=== PATIENT | male | born 1940 | race Caucasian/White ===

== ENCOUNTER 2018-10-02 22:28 | Emergency (ER) | payer MEDICARE, OTHER, SELFPAY ==
[2018-10-02 22:20] VITALS: BP 202/70; PULSE 89; RESP 20; TEMP 36.6; O2SAT 98; BMI 47.9
--- NOTE | 2018-10-02 22:40 | DI.RAD.S_ITS ---
PROCEDURE: XR CHEST 1V INDICATIONS: dizzy, palpiations TECHNIQUE: One view of the chest was acquired. COMPARISON: [facility], , CHEST 1 VIEW, 05/12/2017, 4:33. FINDINGS: Surgical changes and devices: None. Lungs and pleura: Lungs are clear. No pleural effusions or pneumothorax. Cardiac silhouette and mediastinal contours are stable. Bones and chest wall: No suspicious bony lesions. Overlying soft tissues appear unremarkable. Bilateral shoulder degeneration. IMPRESSION: No acute consolidation. Scattered subsegmental atelectasis and/or scarring. Dictated by: Adam Armenta M.D. on 10/03/2018 at 7:51 Approved by: Adam Armenta M.D. on 10/03/2018 at 7:53
[2018-10-02 22:46] VITALS: BP 173/62; PULSE 74
--- NOTE | 2018-10-02 22:46 | ED_ITS ---
HPI - General Adult General Chief complaint: Hypertension Stated complaint: Dizzy, high blood pressure Time Seen by Provider: 10/02/18 22:35 Source: patient and EMS Mode of arrival: EMS Limitations: no limitations History of Present Illness HPI narrative: patient is a 77-year-old male who presents with hypertension. He has history of hypertension. He said he was watching TV with his and he decided to go to bed. He got up he felt little dizzy and lightheaded. Has no weakness numbness or tingling he has no chest pain or heart palpitations. His instructed him to go take his blood pressure he took a and number of times with a systolic above 200 every time. He was not feeling quite well so he shyam led EMS. Blood pressure did come down slightly for them however it does remain elevated here. He continues to deny other symptoms in fact he says that his lightheaded and dizziness has improved. His is no nausea or vomiting. Onset (ago): hour(s) (1) Related Data Home Medications Medication Instructions Recorded Confirmed amlodipine [Norvasc] 10 mg PO QDAY #0 04/11/12 10/02/18 cholecalciferol (vitamin D3) 3,000 iu PO QDAY #0 04/11/12 10/02/18 [Vitamin D3] omega [id number] oil [Fish Oil] 2,000 mg PO QDAY #0 04/11/12 10/02/18 aspirin 81 mg PO QDAY #0 03/05/13 10/02/18 sertraline [Zoloft] 50 mg PO QDAY #0 05/12/17 10/02/18 carvedilol 6.25 mg PO BID 10/02/18 10/02/18 glucosamine sulfate [Glucosamine] 1,500 mg PO DAILY 10/02/18 10/02/18 guaifenesin 400 mg PO DAILY 10/02/18 10/02/18 indomethacin 50 mg PO QID 10/02/18 10/02/18 losartan 100 mg PO DAILY 10/02/18 10/02/18 Previous Rx's Medication Instructions Recorded allopurinol 300 mg PO QDAY #90 06/05/12 Allergies Allergy/AdvReac Type Severity Reaction Status Date / Time RAKAN Inhibitors Allergy Unknown COUGH Unverified 12/04/17 12:59 nadolol Allergy Unknown BRADYCARDIA Unverified 12/04/17 12:59 Review of Systems Review of Systems ROS Unobtainable: All systems reviewed & are unremarkable except as noted in HPI and below Constitutional Denies chills, Denies fever(s), Denies lethargy and Denies weakness Cardiovascular Denies chest pain, Denies irregular heart rhythm, Reports lightheadedness, Denies dyspnea and Denies dyspnea on exertion Respiratory Denies cough, Denies dyspnea, Denies dyspnea on exertion and Denies wheezing Gastrointestinal Gastrointestinal: Denies abdominal pain, Denies change in bowel habits, Denies diarrhea, Denies nausea and Denies vomiting Genitourinary Denies hematuria, Denies flank pain, Denies urinary incontinence and Denies urinary urgency Integumentary/Breasts Denies pruritus, Denies erythema, Denies rash and Denies wounds Neurologic Denies weakness Allergic/Immunologic Denies wheezing FOR[facility]LY [facility] Medical History Hypertension (Acute) Social History Smoking Status: Former smoker Social History Smoking Status: Former smoker Exam Initial Vital Signs Initial Vital Signs: Vital Signs Temperature 97.8 F 10/02/18 22:20 Pulse Rate 89 10/02/18 22:20 Respiratory Rate 20 10/02/18 22:20 Blood Pressure 202/70 H 10/02/18 22:20 Pulse Oximetry 98 10/02/18 22:20 GENERAL: Alert older male in no acute distress alert oriented x3 cooperative HEENT: Head atraumatic,EOMI, pupils reactive, face symmetric neck is supple no JVD CARDIOVASCULAR: Regular rate and rhythm without murmurs, rubs or gallops. RESPIRATORY: Breath sounds equal bilaterally, no wheezes rales or rhonchi. ABDOMEN: Soft, nontender. Normoactive bowel sounds all 4 quadrants. No guarding or rebound. RECTAL: Hemoccult-positive, no hemorrhoids, nontender] : No CVA tenderness EXTREMITIES: Normal range of motion, no clubbing or edema. Neurovascularly intact NEUROLOGICAL: Alert and oriented x4.Normal gait and speech. 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 Scores NIH Stroke Scale Level of Conciousness: Alert, keenly responsive Ask month/age: Answers both questions correctly. Open/close eyes, close hand: Performs both tasks correctly Best gaze horizontal: Normal Visual [place]: No visual loss Facial palsy: Normal symetrical movement Left arm drift: No drift for full 10 sec Right arm drift: No drift for full 10 sec Left leg drift: No drift for full 10 sec Right leg drift: No drift for full 10 sec Limb ataxia: Absent Sensory on face/arms/legs: Normal, no sensory loss Best language: No aphasia, normal Dysarthria: Normal Extinction or inattention: No abnormality Total NIH Stroke scale score: 0 Course Orders Ordered: ED Orders 10/02/18 22:40 XR chest 1V Stat EKG-12 Lead Stat 10/02/18 23:10 Complete Blood Count AUTO DIFF Stat Comprehensive Metabolic Panel Stat Lipase Stat Troponin & CK Cardiac Panel Stat 10/03/18 01:50 Troponin I Stat Vital Signs - 8 hr 10/02/18 22:20 10/02/18 22:46 10/02/18 23:02 Temperature 97.8 F Pulse Rate 89 74 70 Respiratory Rate 20 Blood Pressure 202/70 H Blood Pressure [Right Arm] 173/62 H 170/52 H Pulse Oximetry 98 10/03/18 02:55 Temperature Pulse Rate 71 Respiratory Rate 19 Blood Pressure 160/71 H Blood Pressure [Right Arm] Pulse Oximetry 96 Medical Decision Making Lab Data Lab results reviewed: Yes I reviewed the patient's lab results. Result diagrams: 10/02/18 23:10 10/02/18 23:10 Lab Results 10/02/18 10/02/18 10/03/18 Range/Units 23:10 23:10 01:50 WBC 5.7 (4.5-11.0) X10^3/uL RBC 4.03 L (4.5-5.9) X10^6/uL Hgb 13.2 L (13.5-17.5) g/dL Hct 39.4 L (41-53) % MCV 97.7 (80-100) fL MCH 32.8 (26-34) PG MCHC 33.6 (30-36) % RDW 14.6 (11.6-14.8) % Plt Count 159 (150-400) X10^3/uL Neut % (Auto) 54.5 (50-75) % Lymph % (Auto) 30.6 (25-40) % [place] % (Auto) 9.5 (3-14) % Eos % (Auto) 4.9 H (2-4) % Baso % (Auto) 0.5 (0-2) % Neut # (Auto) 3100 (9007-2774) /uL Lymph # (Auto) 1700 (2061-6270) /uL [place] # (Auto) 500 (0-900) /uL Eos # (Auto) 300 (0-450) /uL Baso # (Auto) 0 (0-100) /uL Sodium 139 (137-145) mmol/L Potassium 3.8 (3.4-5.1) mmol/L Chloride 105 (98-107) mmol/L Carbon Dioxide 26 (22-32) mmol/L BUN 25 H (9-20) mg/dL Creatinine 1.10 (0.66-1.25) mg/dL Estimated GFR > 60.0 (>60) mL/min BUN/Creatinine Ratio 22.7 H (6-22) Glucose 228 H (80-110) mg/dL Calcium 10.5 H (8.4-10.2) mg/dL Total Bilirubin 0.3 (0.2-1.3) mg/dL AST 19 (17-59) IU/L ALT 26 (21-72) IU/L Alkaline Phosphatase 73 (38-126) U/L Total Creatine Kinase 111 (55-170) U/L CK-MB (CK-2) 3.15 H (<2.37) ng/mL CK-MB (CK-2) Rel Index 2.8 (1.5-5.0) % Troponin I 0.044 H 0.050 H (0.01-0.034) ng/mL Total Protein 6.8 (6.3-8.2) g/dL Albumin 4.1 (3.5-5.0) g/dL Globulin 2.7 (1.7-4.1) g/dL Albumin/Globulin Ratio 1.5 (1.0-2.8) Lipase 69 (23-300) U/L Imaging Data Chest x-ray: Attestation: I personally reviewed and interpreted this imaging study as follows: My impression: No acute cardiopulmonary process MDM Narrative Medical decision making narrative: Patient has been ambulatory multiple times to the restroom. His blood pressure has decreased without any intervention. His troponin is slightly elevated minimal change between 2nd troponin. He has absolutely no chest pain. he is feeling dizzy and lightheaded with an elevated blood pressure all symptoms have now resolved. He has been resting comfortably. His son is at bedside he feels ready and able to go home. I discussed all findings with the patient and son, Education has been performed regarding treatment plan, diagnosis, warning signs and symptoms and all concerns have been addressed. Verbally agree with and understood all of the above. Multiple etiologies for patient's symptoms considered including: Hypertension, Vertigo, benign paroxysmal positional vertigo, acute coronary syndrome, CVA, TIA Discharge Plan Departure Patient Disposition: Home Clinical Impression: Hypertension Discharge Date/Time: 10/03/18 02:55 Interventions: ED Discharge Assessment Last Done: 10/03/18 02:55 Instructions: DI for High Blood Pressure Activity Restrictions/Additional Instructions: *You have been diagnosed with hypertension *What to do: Please discuss medication adjustments with your primary care provider. You may need different dosages of her blood pressure medication. *Continue to take medications as directed *Follow up with your primary care provider in 2-3 days *Return to ER if you should have headache, chest pain, shortness of breath, heart palpitations, passing out or any new, worsening or concerning symptoms Prescriptions: No Action cholecalciferol (vitamin D3) [Vitamin D3] 2,000 UNIT capsule 3,000 iu PO QDAY Qty: 0 RF: 0 omega 2-sah-pix-fish oil [Fish Oil] 1,000 MG capsule 2,000 mg PO QDAY Qty: 0 RF: 0 amlodipine [Norvasc] 5 MG tablet 10 mg PO QDAY Qty: 0 RF: 0 allopurinol 300 MG tablet 300 mg PO QDAY Qty: 90 RF: 0 aspirin 81 MG tablet,delayed release (DR/EC) 81 mg PO QDAY Qty: 0 RF: 0 sertraline [Zoloft] 25 mg tablet 50 mg PO QDAY Qty: 0 RF: 0 carvedilol 6.25 mg Tablet 6.25 mg PO BID RF: 0 indomethacin 50 mg Capsule 50 mg PO QID RF: 0 glucosamine sulfate [Glucosamine] 500 mg Tablet 1,500 mg PO DAILY RF: 0 guaifenesin 200 mg Tablet 400 mg PO DAILY RF: 0 losartan 100 mg Tablet 100 mg PO DAILY RF: 0 Referrals: Jose Alberto Alexis MD [Physician] -
[2018-10-02 23:02] VITALS: BP 170/52; PULSE 70
--- NOTE | 2018-10-02 23:26 | PC.NURSE ---
Pt walked with steady gait,feeling better than she did when she arrived.
[2018-10-02 23:27] LABS: Add Manual Diff / Slide Review NO; Basophils Absolute Auto 0 /uL (0-100); Basophils Percent Auto 0.5 % (0-2); Eosinophils Absolute Auto 300 /uL (0-450); Eosinophils Percent Auto 4.9 % (2-4); Hematocrit 39.4 % (41-53); Hemoglobin 13.2 g/dL (13.5-17.5); Lymphocytes Absolute Auto 1700 /uL (1100-4500); Lymphocytes Percent Auto 30.6 % (25-40); Mean Corpuscular HGB Conc 33.6 % (30-36); Mean Corpuscular Hemoglobin 32.8 PG (26-34); Mean Corpuscular Volume 97.7 fL (80-100); Monocytes Absolute Auto 500 /uL (0-900); Monocytes Percent Auto 9.5 % (3-14); Neutrophils Absolute Auto 3100 /uL (1500-7000); Neutrophils Percent Auto 54.5 % (50-75); Platelet Count 159 X10^3/uL (150-400); Red Blood Cell Count 4.03 X10^6/uL (4.5-5.9); Red Cell Distribution Width 14.6 % (11.6-14.8); White Blood Cell Count 5.7 X10^3/uL (4.5-11.0)
[2018-10-02 23:40] LABS: Alanine Aminotransferase 26 IU/L (21-72); Albumin 4.1 g/dL (3.5-5.0); Albumin Globulin Ratio 1.5 (1.0-2.8); Alkaline Phosphatase 73 U/L (38-126); Aspartate Aminotransferase 19 IU/L (17-59); BUN Creatinine Ratio 22.7 (6-22); Bilirubin Total 0.3 mg/dL (0.2-1.3); Blood Urea Nitrogen 25 mg/dL (9-20); Calcium 10.5 mg/dL (8.4-10.2); Carbon Dioxide 26 mmol/L (22-32); Chloride 105 mmol/L (98-107); Creatine Kinase 111 U/L (55-170); Estimated Glomerular Filt Rate > 60.0 mL/min (>60); Globulin 2.7 g/dL (1.7-4.1); Glucose 228 mg/dL (80-110); Lipase 69 U/L (23-300); Potassium 3.8 mmol/L (3.4-5.1); Sodium 139 mmol/L (137-145); Total Protein 6.8 g/dL (6.3-8.2)
[2018-10-02 23:45] LABS: HEMOLYSIS < 15 (0-50)
[2018-10-02 23:53] LABS: Troponin I 0.044 ng/mL (0.01-0.034)
[2018-10-02 23:55] LABS: CKMB % Relative Index 2.8 % (1.5-5.0); Creatine Kinase MB 3.15 ng/mL (<2.37)
[2018-10-03 02:55] VITALS: BP 160/71; PULSE 71; RESP 19; O2SAT 96
== END 2018-10-03 02:55 | disposition home or self-care (01) ==
PROVIDERS: Emergency Provider Emergency Medicine; Family Provider Internal Medicine; PCP Internal Medicine
DX: I10 Essential (primary) hypertension (principal)
CPT/HCPCS: 36415; 36591; 71045; 80053; 82550; 82553; 83690; 84484; 85025; 93005; 99283; 99285

== ENCOUNTER → 2020-03-01 13:24 | Outpatient (CLI) | payer MEDICARE, OTHER, SELFPAY ==
--- NOTE | 2020-03-01 13:27 | DI.RAD.S_ITS ---
PROCEDURE: XR LUMBAR SPINE MIN 4V INDICATIONS: LBP TECHNIQUE: 4 views of the lumbar spine were acquired. COMPARISON: None. FINDINGS: Bones: 5 nonrib-bearing vertebrae are present. There is mildly levoscoliotic bony alignment. No vertebral body compression fractures. No suspicious bony lesions. Note is made of moderately severe degenerative disc disease which is most pronounced at L4-5 and L5-S1. Facet osteoarthritis becomes progressively more prominent from L2 inferiorly and is most pronounced at L5-S1. Soft tissues: Overlying bowel gas pattern is normal. No suspicious soft tissue calcifications. Oblique images: No pars defects. IMPRESSION: No acute disease. 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 Dictated by: Lazarus Jurado M.D. on 03/01/2020 at 14:35 Approved by: Lazarus Jurado M.D. on 03/01/2020 at 14:36
--- NOTE | 2020-03-01 13:27 | DI.RAD.S_ITS ---
PROCEDURE: XR HIP W PEL IF DONE RT 2V INDICATIONS: LBP TECHNIQUE: AP pelvis with lateral view(s) of the right hip(s). COMPARISON: None. FINDINGS: Bones: No fractures or dislocations, but there is a symmetric mild to moderate pattern of hip joint degenerative osteoarthritis as indicated by joint space narrowing. No prior trauma found.. Pelvic ring appears intact. No suspicious bony lesions. Soft tissues: The visualized bowel gas pattern is normal. No suspicious soft tissue calcifications. 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 Dictated by: Lazarus Jurado M.D. on 03/01/2020 at 14:37 Approved by: Lazarus Jurado M.D. on 03/01/2020 at 14:37
== END ==
PROVIDERS: Family Provider Internal Medicine; PCP Internal Medicine; Referring Provider Physical Medicine & Rehabilitation; Visit Provider Physical Medicine & Rehabilitation
DX: M25.551 Pain in right hip (principal); M16.0 Bilateral primary osteoarthritis of hip; M54.5 Low back pain; M51.36 Other intervertebral disc degeneration, lumbar region; M51.37 Other intervertebral disc degeneration, lumbosacral region; M47.816 Spondylosis without myelopathy or radiculopathy, lumbar region; M47.817 Spondylosis without myelopathy or radiculopathy, lumbosacral region
CPT/HCPCS: 72110; 73502

== ENCOUNTER → 2020-03-26 08:28 | Outpatient (CLI) | payer MEDICARE, OTHER, SELFPAY ==
--- NOTE | 2020-03-26 08:30 | DI.MRI.S_ITS ---
PROCEDURE: MR LUMBAR SPINE WO CON INDICATIONS: Chronic progressive low back pain TECHNIQUE: Noncontrast sagittal T1 spin echo and T2 fast echo, sagittal STIR, axial T1 and T2 fast spin echo through the lumbar spine. In cases with scoliosis, additional coronal T2 fast spin echo may be performed. COMPARISON: [facility], CR, XR LUMBAR SPINE MIN 4V, 03/01/2020, 13:23. FINDINGS: Image quality: Excellent. Alignment and Curvature: There is mild L4-L5 anterolisthesis. There is mild convex left curvature of the lumbar spine. Bone Marrow: Marrow is of normal overall signal. No acute vertebral body compression fractures. Spinal Cord: Conus medullaris terminates at the L1 level. Visualized cord demonstrates normal signal and size. Paraspinous Soft Tissues: No paravertebral masses. Partially visualized bilateral renal cysts. 1.4 centimeter exophytic lesion involving the posterior margin of the right kidney is noted which is isointense on all sequences may represent hemorrhagic cyst or solid mass. L1-L2: Loss of disc signal. Mild, diffuse disc bulge. Mild bilateral facet hypertrophy. Mild narrowing of the central canal. No neural foraminal narrowing. No neural compression. L2-L3: Loss of disc signal and height. Mild to moderate diffuse disc bulge. Mild bilateral facet hypertrophy. Moderate narrowing of the central canal. Mild to moderate bilateral neural foraminal narrowing. Fissures noted in the posterior annulus. L3-L4: Loss of disc signal and height. Moderate, diffuse disc bulge. Mild bilateral facet hypertrophy. Moderate narrowing of the central canal. Moderate right and mild left neural foraminal narrowing. No neural compression. Fissures noted in the posterior annulus. L4-L5: Loss of disc signal and height. Mild, diffuse disc bulge. Mild bilateral facet hypertrophy. Mild narrowing of the central canal. Moderate to severe right and mild left neural foraminal narrowing with slight compression of the exiting right L4 nerve root. Fissures noted in the posterior annulus. L5-S1: Loss of disc signal and height. Mild, diffuse disc bulge. Mild bilateral facet hypertrophy. Small right central disc protrusion. Disc protrusion abuts and displaces the traversing right S1 nerve root. No central stenosis. Moderate bilateral neural foraminal narrowing. Fissure noted in the posterior annulus. IMPRESSION: 1. Grade 1 L4-L5 degenerative spondylolisthesis. 2. Multilevel degenerative disease. 3. Multilevel facet arthropathy. 4. No significant central canal narrowing. 5. Moderate to severe right L4-L5 neural foraminal narrowing with slight compression of the exiting right L4 nerve root. 6. Small right central L5-S1 disc protrusion which abuts and slightly displaces the traversing right S1 nerve root. 7. L2-L3, L3-L4 and L4-L5 and L5-S1 disc annulus fissures. 8. 1.8 centimeter right renal exophytic lesion which could represent hemorrhagic cyst versus solid mass. Recommend renal ultrasound for further characterization. Dictated by: Keshia Castillo MD, PhD on 03/28/2020 at 11:18 Approved by: Keshia Castillo MD, PhD on 03/28/2020 at 11:25
== END ==
PROVIDERS: Family Provider Internal Medicine; PCP Internal Medicine; Referring Provider Physical Medicine & Rehabilitation; Visit Provider Physical Medicine & Rehabilitation
DX: M47.816 Spondylosis without myelopathy or radiculopathy, lumbar region (principal); M47.817 Spondylosis without myelopathy or radiculopathy, lumbosacral region; M51.36 Other intervertebral disc degeneration, lumbar region; M51.37 Other intervertebral disc degeneration, lumbosacral region; M51.27 Other intervertebral disc displacement, lumbosacral region; M48.061 Spinal stenosis, lumbar region without neurogenic claudication; M48.07 Spinal stenosis, lumbosacral region; M41.50 Other secondary scoliosis, site unspecified; G89.29 Other chronic pain; N28.9 Disorder of kidney and ureter, unspecified
CPT/HCPCS: 72148

== ENCOUNTER → 2020-04-07 12:30 | Outpatient (CLI) | payer MEDICARE, OTHER, SELFPAY ==
--- NOTE | 2020-04-07 12:33 | DI.US.S_ITS ---
PROCEDURE: US RENAL COMPLETE INDICATIONS: RIGHT KIDNEY MASS ON MRI TECHNIQUE: Real-time scanning was performed of the kidneys and bladder, with image documentation. COMPARISON: [facility], MR, MR LUMBAR SPINE WO CON, 03/26/2020, 8:35. FINDINGS: Kidneys: Kidneys are normal in size. Right kidney measures 12.9 cm long; left kidney measures 17.7 cm long. Right renal cortical thickness is 1.2 cm; left renal cortical thickness is 1.7 cm. Renal cortical echotexture is normal. No hydronephrosis or nephrolithiasis. No suspicious solid mass lesions. Multiple bilateral renal cysts are present. 1.7 x 1.6 x 1.6 cm complex cyst involves the mid inferior posterior aspect of the right kidney corresponding to the cyst seen on prior MRI. Bladder: Pre-void bladder volume is 83 mL. Post-void residual is 0 mL. Pre-void images demonstrate no intraluminal masses or stones. On pre-void images, bilateral ureteral jets are noted with color Doppler interrogation. (Of note, ureteral jets may not be detectable in up to 25% of cases due to insufficient differences in specific gravity between ureteral and bladder urine). Miscellaneous: No free pelvic fluid. IMPRESSION: Complex (Bosniak 2 F) Left renal cyst corresponding to the cyst seen on prior MRI. Recommend 3 month follow-up ultrasound for further assessment to document temporal stability. Dictated by: Pancho Pagan A Interpreted: Keshia Castillo MD on 04/07/2020 at 13:47 Approved by: Keshia Castillo MD, PhD on 04/07/2020 at 14:24
== END ==
PROVIDERS: Family Provider Internal Medicine; PCP Internal Medicine; Referring Provider Internal Medicine; Visit Provider Internal Medicine
DX: N28.89 Other specified disorders of kidney and ureter (principal); N28.1 Cyst of kidney, acquired
CPT/HCPCS: 76770

== ENCOUNTER → 2020-07-11 19:40 | Outpatient (ROUT) | payer MEDICARE, OTHER, SELFPAY ==
[2020-07-11 20:10] LABS: Aspartate Aminotransferase 20 IU/L (17-59); BUN Creatinine Ratio 18.6 (6-22); Blood Urea Nitrogen 24 mg/dL (9-20); Calcium 10.4 mg/dL (8.4-10.2); Carbon Dioxide 33 mmol/L (22-32); Chloride 103 mmol/L (98-107); Cholesterol 160 mg/dL (140-199); Estimated Glomerular Filt Rate 53.5 mL/min (>60); Glucose 237 mg/dL (80-110); HDL Cholesterol 59 mg/dL (40-60); HEMOLYSIS < 15 (0-50); LDL Cholesterol Calculated 34 mg/dL (<100); Potassium 4.4 mmol/L (3.4-5.1); Sodium 140 mmol/L (137-145); Triglycerides 334 mg/dL (35-150)
== END ==
PROVIDERS: Family Provider Internal Medicine; PCP Internal Medicine; Visit Provider Internal Medicine
DX: I10 Essential (primary) hypertension (principal); E78.2 Mixed hyperlipidemia
CPT/HCPCS: 80048; 80061; 84450

== ENCOUNTER → 2020-07-13 12:10 | Outpatient (CLI) | payer MEDICARE, OTHER, SELFPAY ==
--- NOTE | 2020-07-13 | DI.US.S_ITS ---
PROCEDURE: US RENAL COMPLETE INDICATIONS: COMPLEX CYST RIGHT KIDNEY TECHNIQUE: Real-time scanning was performed of the kidneys and bladder, with image documentation. COMPARISON: [facility], MR, MR LUMBAR SPINE WO CON, 03/26/2020, 8:35. [facility], US, US RENAL COMPLETE, 04/07/2020, 12:39. FINDINGS: Kidneys: Kidneys are normal in size. Right kidney measures 12.5 cm long; left kidney measures 2.2 cm long. Right renal cortical thickness is 16.5 cm; left renal cortical thickness is 2.1 cm. Right mid kidney posteriorly exophytic hypoechoic cyst measuring 2 x 1.9 x 1.4 cm, (previously measured at 1.7 x 1.6 x 1.6 cm). Multiple simple appearing cysts bilaterally. Largest cyst on the right measures 2.6 cm and on the left measures 10.3 cm. No hydronephrosis or nephrolithiasis. No suspicious solid mass lesions. Bladder: Decompressed. IMPRESSION: 1. Right mid kidney mildly complex cystic lesion measuring 2 cm. The cyst may be slightly increased in size compared to ultrasound 04/07/2020. -recommend further evaluated with renal MRI with IV contrast or renal protocol CT. 2. Multiple simple appearing renal cysts bilaterally. 3. No hydronephrosis. Dictated by: Wilmer Celestin M.D. on 07/13/2020 at 13:42 Approved by: Wilmer Celestin M.D. on 07/13/2020 at 14:03
== END ==
PROVIDERS: Family Provider Internal Medicine; PCP Internal Medicine; Referring Provider Internal Medicine; Visit Provider Internal Medicine
DX: N28.1 Cyst of kidney, acquired (principal)
CPT/HCPCS: 76770

== ENCOUNTER → 2020-07-22 11:39 | Outpatient (CLI) | payer MEDICARE, OTHER, SELFPAY ==
--- NOTE | 2020-07-22 11:42 | DI.MRI.S_ITS ---
PROCEDURE: MR ABDOMEN WO/W CON INDICATIONS: Other specified disorders of kidney and ureter TECHNIQUE: Coronal HASTE through abdomen and pelvis; axial 2D FLASH in- and [id number] (with and without fat saturation), and breath-hold T2 FSE from the hepatic dome to the bottom of the kidneys. Coronal HASTE MR urogram of kidneys and bladder. Dynamic coronal VIBE during IV gadolinium administration; postgadolinium axial VIBE or 2D FLASH with fat saturation from the hepatic dome through the kidneys. COMPARISON: [facility], , US RENAL COMPLETE, 07/13/2020, 12:25. [facility], , US RENAL COMPLETE, 04/07/2020, 12:39. [facility], , MR LUMBAR SPINE WO CON, 03/26/2020, 8:35. FINDINGS: Image quality: Excellent. Genitourinary system: No hydronephrosis or nephrolithiasis is suspected. Scattered renal cortical cysts are again seen, simple in character and measuring up to 7 cm anteriorly on the left, but present bilaterally. There is a small posterior directed renal cortical cyst at the lower 3rd margin of the right kidney, corresponding to the area of prior MR and ultrasound concern. This structure shows low signal character on axial T2 scanning, series 6, image 24, with elevated T2 signal at all other cyst. However, this demonstrates elevated precontrast and equivalent elevated post-contrast signal intensity within, consistent with a proteinaceous cyst. The overall size is approximately 1.3-1.4 cm in maximal dimension. Other solid organs: No abnormality found. Nodes and vessels: No abnormality seen, no enlarged lymph nodes found. Bowel and peritoneum: Normal. Lung bases: Normal. Bones and soft tissues: Normal. IMPRESSION: A small 1.3-1.4 cm exophytic right lower renal cortical cyst is present with proteinaceous internal content and no evidence of contrast enhancement. No follow-up recommended. Dictated by: Lazarus Jurado M.D. on 07/22/2020 at 13:07 Approved by: Lazarus Jurado M.D. on 07/22/2020 at 13:17
== END ==
PROVIDERS: Family Provider Internal Medicine; PCP Internal Medicine; Referring Provider Internal Medicine; Visit Provider Internal Medicine
DX: N28.89 Other specified disorders of kidney and ureter (principal); N28.1 Cyst of kidney, acquired
CPT/HCPCS: 74183

== ENCOUNTER → 2020-10-11 18:46 | Outpatient (ROUT) | payer MEDICARE, SELFPAY ==
[2020-10-11 19:05] LABS: BUN Creatinine Ratio 22.7 (6-22); Blood Urea Nitrogen 25 mg/dL (9-20); Calcium 10.8 mg/dL (8.4-10.2); Carbon Dioxide 28 mmol/L (22-32); Chloride 108 mmol/L (98-107); Estimated Glomerular Filt Rate > 60.0 mL/min (>60); Glucose 134 mg/dL (80-110); HEMOLYSIS 42 (0-50); Potassium 4.3 mmol/L (3.4-5.1); Sodium 140 mmol/L (137-145)
== END ==
PROVIDERS: Family Provider Internal Medicine; PCP Internal Medicine; Visit Provider Internal Medicine
DX: I10 Essential (primary) hypertension (principal)
CPT/HCPCS: 80048

== ENCOUNTER → 2021-02-03 15:27 | Outpatient (ROUT) | payer MEDICARE, SELFPAY ==
[2021-02-03 16:44] LABS: Prostate Specific Antigen Scrn 1.41 ng/mL (0.1-4.0)
== END ==
PROVIDERS: Family Provider Internal Medicine; PCP Internal Medicine; Visit Provider Internal Medicine
DX: R32 Unspecified urinary incontinence (principal)
CPT/HCPCS: G0103

== ENCOUNTER 2021-04-01 09:44 | Emergency (ER) | payer MEDICARE, SELFPAY ==
[2021-04-01] VITALS (15 sets, daily range): BP systolic 132–175; BP diastolic 62–100; PULSE 56–74; RESP 16–25; TEMP 37; O2SAT 95–98; BMI 34.7
--- NOTE | 2021-04-01 09:47 | ED_ITS ---
HPI - Chest Pain General Chief Complaint: Chest Pain Stated Complaint: chest pain Time Seen by Provider: 04/01/21 09:47 History of Present Illness HPI narrative: 80M former smoker with history of hypertension and hyperlipidemia presents with a few days of chest pain. He is currently symptom free but states that few days ago he developed retrosternal chest pressure and heaviness without obvious provocation or palliation. He states that he has had episodes that have lasted minutes to hours and have on occasion radiated into his right arm. He denies any associated symptoms such as dizziness, weakness or lightheadedness. He has no shortness of breath, nausea or vomiting. Additionally he states he has had some pain in his right lower back that on occasion wraps around his right side, also no worse with motion, food or drink. He denies any abdominal pain, nausea, vomiting or diarrhea. He denies any dysuria, frequency or urgency. Related Data Home Medications Medication Instructions Recorded Confirmed amlodipine 5 mg tablet (Norvasc) 10 mg PO QDAY #0 04/11/12 04/04/20 glucosamine sulfate 500 mg tablet 1,500 mg PO DAILY 10/02/18 04/04/20 (Glucosamine) indomethacin 50 mg capsule 50 mg PO QID 10/02/18 04/04/20 losartan 100 mg tablet 100 mg PO DAILY 10/02/18 04/04/20 Respironics DreamStation CPAP #1 ea 11/26/18 04/04/20 atorvastatin 10 mg tablet 10 mg PO DAILY 05/27/19 04/04/20 carvedilol 6.25 mg tablet 12.5 mg PO BID tab 05/27/19 04/04/20 cholecalciferol (vitamin D3) 50 4,000 unit PO BID #0 cap 05/27/19 04/04/20 mcg (2,000 unit) capsule (Vitamin D3) sertraline 100 mg tablet 100 mg PO DAILY 03/21/20 04/04/20 Previous Rx's Medication Instructions Recorded allopurinol 300 mg tablet 300 mg PO QDAY #90 06/05/12 Allergies Allergy/AdvReac Type Severity Reaction Status Date / Time RAKAN Inhibitors Allergy Unknown COUGH Verified 04/01/21 09:54 nadolol Allergy Unknown BRADYCARDIA Verified 04/01/21 09:54 Review of Systems Review of Systems Narrative: GENERAL: Denies chills, fatigue, malaise, fever, sweats. HEENT: Denies sinus pain, ear pain, sore throat, difficulty swallowing, dizziness. RESPIRATORY: Denies dyspnea, cough, wheezing, hemoptysis, sputum. CARDIOVASCULAR: See HPI GASTROINTESTINAL: Denies nausea, vomiting, abdominal pain, diarrhea, constipation, melena. : Denies dysuria, frequency, incontinence, hematuria, urinary retention. MUSCULOSKELETAL: denies weakness, joint pain, or bony pain SKIN: Denies rash, skin lesions, or other NEUROLOGIC: Denies weakness, headache, numbness, change in speech, confusion, seizures, incoordination. PSYCHIATRIC: No concerning psychosocial issues. 12 point review of systems is negative except for those stated above Patient History Medical History (Updated 04/01/21 @ 15:28 by Aman Hurtado DO) Acute low back pain Acute renal insufficiency Allergic rhinitis, cause unspecified (01/09/05) Depressive disorder, not elsewhere classified (07/26/03) Diabetes type 2, controlled Excessive daytime sleepiness Extrinsic asthma without status asthmaticus with acute exacerbation (01/22/03) Facet arthropathy, lumbar Glucose intolerance (03/27/04) Gout, unspecified Hyperparathyroidism, unspecified Hypertension Idiopathic peripheral autonomic neuropathy, unspecified (08/28/02) Mixed hyperlipidemia Obesity (BMI 30-39.9) Obstructive sleep apnea, adult Osteopenia (03/21/11) Proteinuria (11/06/05) Renal mass, right Right hip pain 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 Vitamin D deficiency, unspecified Surgical History History of parathyroid surgery Social History Smoking Status: Former smoker Smoking Status: Former smoker alcohol intake frequency: a few times a week Substance Use Type: does not use Exam Initial Vital Signs Initial Vital Signs: Vital Signs Temperature 98.6 F 04/01/21 09:48 Pulse Rate 74 04/01/21 09:48 Respiratory Rate 20 04/01/21 09:48 Blood Pressure 170/73 H 04/01/21 09:48 Pulse Oximetry 97 04/01/21 09:48 Course Orders Ordered: ED Orders 04/01/21 11:11 CT angio chest abdomen pelvis Stat 04/01/21 13:05 Troponin I Stat Vital Signs Vital signs: Vital Signs - 8 hr 04/01/21 13:00 04/01/21 13:01 04/01/21 13:31 Pulse Rate 62 Respiratory Rate 25 H Blood Pressure 136/62 168/72 H Pulse Oximetry 04/01/21 14:00 04/01/21 14:30 04/01/21 14:31 Pulse Rate 56 L 58 L Respiratory Rate 20 19 Blood Pressure 174/74 H 175/80 H Pulse Oximetry 95 95 04/01/21 15:00 04/01/21 15:01 Pulse Rate 56 L 57 L Respiratory Rate 23 22 Blood Pressure 158/71 H Pulse Oximetry 96 95 MDM - Chest Pain Lab Data Result diagrams: 04/01/21 10:40 04/01/21 10:40 Labs: Lab Results 04/01/21 04/01/21 04/01/21 Range/Units 10:40 10:40 10:40 WBC 10.7 (4.5-11.0) X10^3/uL RBC 4.12 L (4.5-5.9) X10^6/uL Hgb 13.0 L (13.5-17.5) g/dL Hct 39.7 L (41-53) % MCV 96.3 (80-100) fL MCH 31.6 (26-34) PG MCHC 32.8 (30-36) % RDW 15.4 H (11.6-14.8) % Plt Count 147 L (150-400) X10^3/uL Neut % (Auto) 77.2 H (50-75) % Lymph % (Auto) 12.9 L (25-40) % [place] % (Auto) 6.8 (3-14) % Eos % (Auto) 1.1 L (2-4) % Baso % (Auto) 2.0 (0-2) % Neut # (Auto) 8200 H (0923-2082) /uL Lymph # (Auto) 1400 (2530-3665) /uL [place] # (Auto) 700 (0-900) /uL Eos # (Auto) 100 (0-450) /uL Baso # (Auto) 200 H (0-100) /uL D-Dimer 297 H (<230) ng/mL Sodium 141 (137-145) mmol/L Potassium 4.3 (3.4-5.1) mmol/L Chloride 109 H (98-107) mmol/L Carbon Dioxide 25 (22-32) mmol/L BUN 21 H (9-20) mg/dL Creatinine 0.98 (0.66-1.25) mg/dL Estimated GFR > 60.0 (>60) mL/min BUN/Creatinine Ratio 21.4 (6-22) Glucose 151 H (80-110) mg/dL Calcium 10.6 H (8.4-10.2) mg/dL Total Bilirubin 0.9 (0.2-1.3) mg/dL AST 21 (17-59) IU/L ALT 17 (<50) IU/L Alkaline Phosphatase 81 (38-126) U/L Total Creatine Kinase 47 L (55-170) U/L CK-MB (CK-2) TNP CK-MB (CK-2) Rel Index TNP Troponin I 0.015 (0.01-0.034) ng/mL Total Protein 6.6 (6.3-8.2) g/dL Albumin 3.9 (3.5-5.0) g/dL Globulin 2.7 (1.7-4.1) g/dL Albumin/Globulin Ratio 1.4 (1.0-2.8) Lipase 36 (23-300) U/L 04/01/21 Range/Units 13:05 WBC (4.5-11.0) X10^3/uL RBC (4.5-5.9) X10^6/uL Hgb (13.5-17.5) g/dL Hct (41-53) % MCV (80-100) fL MCH (26-34) PG MCHC (30-36) % RDW (11.6-14.8) % Plt Count (150-400) X10^3/uL Neut % (Auto) (50-75) % Lymph % (Auto) (25-40) % [place] % (Auto) (3-14) % Eos % (Auto) (2-4) % Baso % (Auto) (0-2) % Neut # (Auto) (0932-5455) /uL Lymph # (Auto) (4649-8887) /uL [place] # (Auto) (0-900) /uL Eos # (Auto) (0-450) /uL Baso # (Auto) (0-100) /uL D-Dimer (<230) ng/mL Sodium (137-145) mmol/L Potassium (3.4-5.1) mmol/L Chloride (98-107) mmol/L Carbon Dioxide (22-32) mmol/L BUN (9-20) mg/dL Creatinine (0.66-1.25) mg/dL Estimated GFR (>60) mL/min BUN/Creatinine Ratio (6-22) Glucose (80-110) mg/dL Calcium (8.4-10.2) mg/dL Total Bilirubin (0.2-1.3) mg/dL AST (17-59) IU/L ALT (<50) IU/L Alkaline Phosphatase (38-126) U/L Total Creatine Kinase (55-170) U/L CK-MB (CK-2) CK-MB (CK-2) Rel Index Troponin I 0.017 (0.01-0.034) ng/mL Total Protein (6.3-8.2) g/dL Albumin (3.5-5.0) g/dL Globulin (1.7-4.1) g/dL Albumin/Globulin Ratio (1.0-2.8) Lipase (23-300) U/L Urine Dip Bedside Urine Glucose Negative Bedside Urine Bilirubin - Negative Bedside Urine Ketone - Negative Urine Specific [place] 1.025 Bedside Urine Occult Blood +/- Bedside Urine pH 6.0 Bedside Urine Protein ++ 100 Bedside Urine Urobilinogen - Negative Bedside Urine Nitrite - Negative Bedside Urine Leukocytes - Negative Esterase Imaging Data CT scan - chest: Radiologist's Impression: Tk Jacobo Fran 80 M 1940 [address] [id number] Scan ReportSigned Patient: Tk Jacobo FMR#: [id number]: 1940cct:[id number]/Sex: 80 / MDate of Service: 04/01/21Loc: EDAccession Number: [id number] Procedure: CT angio chest abdomen pelvis Ordering Provider: Aman Hurtado D.O. PROCEDURE: CT ANGIO CHEST ABDOMEN PELVIS INDICATIONS: chest, abdomen and flank pain TECHNIQUE: Precontrast 5 mm thick sections acquired from the lung apices to the iliac crests. After the administration of intravenous contrast, 2.5 mm thick sections again acquired from the lung apices to the iliac crests. Maximum intensity projection (MIP) oblique s agittal and coronal reformats were then acquired. For radiation dose reduction, the following was used: automated exposure control. COMPARISON: [facility], MR, MR ABDOMEN WO/W CON, 07/22/2020, 12:21. [facility], CR, XR CHEST 1V, 04/01/2021, 10:00. FINDINGS: Image quality: Excellent. AORTA: On precontrast imaging, no hyperdense mural hematomas can be seen. On postcontrast imaging, there is no ascending thoracic aortic aneurysm. 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 The descending thoracic aorta measures at the upper limits of normal. No abdominal aortic aneurysm is seen. No findings of dissection can be seen throughout. Atherosclerotic calcification is noted. CHEST: Lungs and pleura: No acute airspace opacities. No pleural effusions or pneumothorax. Central and peripheral airways are patent and normal in caliber. Mediastinum: Heart size is moderately enlarged. No pericardial effusion. No mediastinal or hilar adenopathy by size criteria. Central pulmonary arteries are normal in size. No pulmonary artery filling defects are seen to suggest pulmonary embolism. Esophagus is normal in caliber. There is a small hiatal hernia. Bones and chest wall: No axillary adenopathy by size criteria. Thyroid gland demonstrates no significant abnormality. No suspicious bony lesions. No vertebral body compression fractures. ABDOMEN: Vasculature: Celiac trunk and mesenteric arteries are patent. Renal arteries are also patent. Solid organs: Liver is normal in size and enhancement. Gallbladder wall is not thickened. Biliary system is non dilated. Pancreas enhances normally. Spleen is normal in size and enhancement. No adrenal nodules. Both kidneys are normal in size and enhancement, without hydronephrosis. A li aury hemorrhagic cyst is again seen along the posterior aspect of the right kidney. Simple appearing renal cysts are seen elsewhere, with the largest seen on the left measuring 10.5 cm. Peritoneum and bowel: No free fluid or air. Bowel loops are normal in caliber and wall thickness. A normal appendix is incidentally noted. Colonic diverticulosis is seen, without findings of active diverticulitis. Nodes and vessels: No retroperitoneal or mesenteric adenopathy by size criteria. Inferior vena cava is normal in morphology. Miscellaneous: There is a trace fat containing periumbilical hernia PELVIS: Genitourinary: Bladder wall thickness is normal. The prostate is enlarged, me asuring 6 cm transversely. Miscellaneous: No inguinal hernias or adenopathy. No ventral hernias. Bones: No suspicious bony lesions. No vertebral body compression fractures. Mild levoconvex scoliotic curvature is noted. Degenerative changes are seen throughout, which are worst involving the lower lumbar spine. Note is made of prominent fusion of the right sacroiliac joint. IMPRESSION: Negative for dissection. 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 Moderate cardiomegaly. Incidental note is made of: Small hiatal hernia Simple appearing bilateral renal cysts Stable hemorrhagic renal cyst on the right posteriorly Trace Fat containing periumbilical hernia Diverticulosis, without active diverticulitis Normal appendix Enlarged prostate Levoconvex scoliotic curvature Focal lower lumbar spine degenerative change Right sacroiliac joint fusion Dictated by: Krishna Diaz M.D. on 04/01/2021 at 10:55 Approved by: Krishna Diaz M.D. on 04/01/2021 at 11:02 [facility] Narrative Medical decision making narrative: 80-year-old male with various complaints. He has had chest pain for many days. There is no exertional component, he has multiple EKGs which are nonischemic and troponin is unremarkable. Other associated symptoms such as dizziness, nausea, vomiting, diaphoresis are not present. I have consulted with Cardiology and they a strong recommendation to workup patient as an outpatient. Other diagnoses such as pulmonary embolism and dissection are considered but thought unlikely given lack of findings on imaging. Regarding his flank pain dissection considered as well as kidney stone, kidney infection, bowel problem, gallbladder problem are all thought to be unlikely given lack of findings supported by labs or imaging. Patient is given multiple return precautions and questions answered to his apparent satisfaction. He and daughter understand and are in agreement with the plan Discharge Plan Departure Patient Disposition: Home Clinical Impression: Chest pain, rule out acute myocardial infarction, Acute flank pain Instructions: DI for Abdominal Pain-Adult, DI for Chest Pain Activity Restrictions/Additional Instructions: *You have been diagnosed with [chest pain and flank pain. Your physical exam, EKGs and labs as well as imaging are very reassuring. I have spoken with Cardiology and we sure the opinion that you can have your chest pain ruled out a s an outpatient] *What to do: *Please continue to take your regular medications as directed. [ ] New medication prescriptions sent to your pharmacy: [ ] [ ] New medication written as a paper prescription [ ] No new medications given *Please follow up with your primary care provider in 2-3 days, call for an appointment. Let them know you were seen in the Emergency Department and that we ask that you be seen in follow up. We will electronically transmit a record of today's note if your PCP is in our system *If you do not have a primary care provider please contact the [facility] Resource line at [phone]. They will ask some questions about your medical history and help get you set up with a doctor in the community. *Return to Emergency Department if you should have any new, worsening or concerning symptoms, such as [fever greater than 101 F, shaking chills, worsening pain, persistent vomiting or other bothersome symptoms] Prescriptions: No Action amlodipine [Norvasc] 5 MG tablet 10 mg PO QDAY Qty: 0 RF: 0 allopurinol 300 MG tablet 300 mg PO QDAY Qty: 90 RF: 0 cholecalciferol (vitamin D3) [Vitamin D3] 2,000 unit capsule 4,000 unit PO BID Qty: 0 RF: 0 indomethacin 50 mg Capsule 50 mg PO QID RF: 0 glucosamine sulfate [Glucosamine] 500 mg Tablet 1,500 mg PO DAILY RF: 0 losartan 100 mg Tablet 100 mg PO DAILY RF: 0 carvedilol 6.25 mg tablet 12.5 mg PO BID RF: 0 sertraline 100 mg tablet 100 mg PO DAILY RF: 0 (DME) Respironics DreamStation CPAP Qty: 1 RF: 0 atorvastatin 10 mg tablet 10 mg PO DAILY RF: 0 Referrals: Jose Alberto Alexis MD [Primary Care Provider] -
--- NOTE | 2021-04-01 09:54 | DI.RAD.S_ITS ---
PROCEDURE: XR CHEST 1V INDICATIONS: chest pain TECHNIQUE: One view of the chest was acquired. COMPARISON: None. Prior chest radiographs are not available from the archive for review at the time of this dictation. FINDINGS: Surgical changes and devices: None. Lungs and pleura: An incomplete inspiratory result is noted, causing a crowded appearance to the lung markings. No focal infiltrates are seen. No pneumothorax or significant pleural effusions are seen. Mediastinum: Mediastinal contours appear normal. Heart size is moderately enlarged. Bones and chest wall: No suspicious bony lesions. Age-appropriate bony degenerative changes are seen. Overlying soft tissues appear unremarkable. IMPRESSION: Moderate cardiomegaly. Dictated by: Krsihna Diaz M.D. on 04/01/2021 at 9:19 Approved by: Krishna Diaz M.D. on 04/01/2021 at 9:22
[2021-04-01 10:48] LABS: Add Manual Diff / Slide Review NO; Basophils Absolute Auto 200 /uL (0-100); Eosinophils Absolute Auto 100 /uL (0-450); Eosinophils Percent Auto 1.1 % (2-4); Hematocrit 39.7 % (41-53); Lymphocytes Absolute Auto 1400 /uL (1100-4500); Lymphocytes Percent Auto 12.9 % (25-40); Mean Corpuscular HGB Conc 32.8 % (30-36); Mean Corpuscular Hemoglobin 31.6 PG (26-34); Mean Corpuscular Volume 96.3 fL (80-100); Monocytes Absolute Auto 700 /uL (0-900); Monocytes Percent Auto 6.8 % (3-14); Neutrophils Absolute Auto 8200 /uL (1500-7000); Neutrophils Percent Auto 77.2 % (50-75); Platelet Count 147 X10^3/uL (150-400); Red Blood Cell Count 4.12 X10^6/uL (4.5-5.9); Red Cell Distribution Width 15.4 % (11.6-14.8); White Blood Cell Count 10.7 X10^3/uL (4.5-11.0)
[2021-04-01 11:00] LABS: D Dimer 297 ng/mL (<230)
[2021-04-01 11:06] LABS: Alanine Aminotransferase 17 IU/L (<50); Albumin 3.9 g/dL (3.5-5.0); Albumin Globulin Ratio 1.4 (1.0-2.8); Alkaline Phosphatase 81 U/L (38-126); Aspartate Aminotransferase 21 IU/L (17-59); BUN Creatinine Ratio 21.4 (6-22); Bilirubin Total 0.9 mg/dL (0.2-1.3); Blood Urea Nitrogen 21 mg/dL (9-20); Calcium 10.6 mg/dL (8.4-10.2); Carbon Dioxide 25 mmol/L (22-32); Chloride 109 mmol/L (98-107); Creatine Kinase 47 U/L (55-170); Estimated Glomerular Filt Rate > 60.0 mL/min (>60); Globulin 2.7 g/dL (1.7-4.1); Glucose 151 mg/dL (80-110); HEMOLYSIS < 15 (0-50); Lipase 36 U/L (23-300); Potassium 4.3 mmol/L (3.4-5.1); Sodium 141 mmol/L (137-145); Total Protein 6.6 g/dL (6.3-8.2)
--- NOTE | 2021-04-01 11:11 | DI.CT.S_ITS ---
PROCEDURE: CT ANGIO CHEST ABDOMEN PELVIS INDICATIONS: chest, abdomen and flank pain TECHNIQUE: Precontrast 5 mm thick sections acquired from the lung apices to the iliac crests. After the administration of intravenous contrast, 2.5 mm thick sections again acquired from the lung apices to the iliac crests. Maximum intensity projection (MIP) oblique sagittal and coronal reformats were then acquired. For radiation dose reduction, the following was used: automated exposure control. COMPARISON: [facility], MR, MR ABDOMEN WO/W CON, 07/22/2020, 12:21. [facility], CR, XR CHEST 1V, 04/01/2021, 10:00. FINDINGS: Image quality: Excellent. AORTA: On precontrast imaging, no hyperdense mural hematomas can be seen. On postcontrast imaging, there is no ascending thoracic aortic aneurysm. 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 The descending thoracic aorta measures at the upper limits of normal. No abdominal aortic aneurysm is seen. No findings of dissection can be seen throughout. Atherosclerotic calcification is noted. CHEST: Lungs and pleura: No acute airspace opacities. No pleural effusions or pneumothorax. Central and peripheral airways are patent and normal in caliber. Mediastinum: Heart size is moderately enlarged. No pericardial effusion. No mediastinal or hilar adenopathy by size criteria. Central pulmonary arteries are normal in size. No pulmonary artery filling defects are seen to suggest pulmonary embolism. Esophagus is normal in caliber. There is a small hiatal hernia. Bones and chest wall: No axillary adenopathy by size criteria. Thyroid gland demonstrates no significant abnormality. No suspicious bony lesions. No vertebral body compression fractures. ABDOMEN: Vasculature: Celiac trunk and mesenteric arteries are patent. Renal arteries are also patent. Solid organs: Liver is normal in size and enhancement. Gallbladder wall is not thickened. Biliary system is non dilated. Pancreas enhances normally. Spleen is normal in size and enhancement. No adrenal nodules. Both kidneys are normal in size and enhancement, without hydronephrosis. A likely hemorrhagic cyst is again seen along the posterior aspect of the right kidney. Simple appearing renal cysts are seen elsewhere, with the largest seen on the left measuring 10.5 cm. Peritoneum and bowel: No free fluid or air. Bowel loops are normal in caliber and wall thickness. A normal appendix is incidentally noted. Colonic diverticulosis is seen, without findings of active diverticulitis. Nodes and vessels: No retroperitoneal or mesenteric adenopathy by size criteria. Inferior vena cava is normal in morphology. Miscellaneous: There is a trace fat containing periumbilical hernia PELVIS: Genitourinary: Bladder wall thickness is normal. The prostate is enlarged, measuring 6 cm transversely. Miscellaneous: No inguinal hernias or adenopathy. No ventral hernias. Bones: No suspicious bony lesions. No vertebral body compression fractures. Mild levoconvex scoliotic curvature is noted. Degenerative changes are seen throughout, which are worst involving the lower lumbar spine. Note is made of prominent fusion of the right sacroiliac joint. IMPRESSION: Negative for dissection. 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 Moderate cardiomegaly. Incidental note is made of: Small hiatal hernia Simple appearing bilateral renal cysts Stable hemorrhagic renal cyst on the right posteriorly Trace Fat containing periumbilical hernia Diverticulosis, without active diverticulitis Normal appendix Enlarged prostate Levoconvex scoliotic curvature Focal lower lumbar spine degenerative change Right sacroiliac joint fusion Dictated by: Krishna Diaz M.D. on 04/01/2021 at 10:55 Approved by: Krishna Diaz M.D. on 04/01/2021 at 11:02
[2021-04-01 11:18] LABS: Troponin I 0.015 ng/mL (0.01-0.034)
[2021-04-01 13:35] LABS: Troponin I 0.017 ng/mL (0.01-0.034)
== END 2021-04-01 16:01 | disposition home or self-care (01) ==
PROVIDERS: Emergency Provider Emergency Medicine; Family Provider Internal Medicine; PCP Internal Medicine
DX: R07.9 Chest pain, unspecified (principal); R10.9 Unspecified abdominal pain
CPT/HCPCS: 36415; 71045; 71275; 74174; 80053; 81003; 82550; 83690; 84484; 85025; 85379; 93005; 99283; 99284; Q9967

== ENCOUNTER 2021-06-06 17:57 | Emergency (ER) | payer MEDICARE, SELFPAY ==
[2021-06-06] VITALS (18 sets, daily range): BP systolic 133–153; BP diastolic 58–67; PULSE 48–89; RESP 12–46; TEMP 36.1; O2SAT 92–100; BMI 31.8
--- NOTE | 2021-06-06 18:08 | ED_ITS ---
HPI - Fall General Chief Complaint: Weakness Stated Complaint: Multiple falls Time Seen by Provider: 06/06/21 18:03 History of Present Illness HPI Narrative: 80-year-old male with history of hyperlipidemia, idiopathic peripheral neuropathy, hypertension, presents by EMS for evaluation of generalized weakness and 2 falls today. He states that he was at [employer] and his legs were wobbly and just gave out underneath him, he was able to get himself to the car but then at home his arms gait out on him and he fell to the ground and crawled for 45 minutes before receiving help. He did strike his head but denies any loss of consciousness, nausea or vomiting. He denies any blurred vision or trouble with speech. He has had some diarrhea off and on for the past few weeks and had seen his primary care provider who put him on some unknown medication (later determined to be Immodium) He has had no fever chills, denies recent travel. Patient has been taking some Loperamide and Spironolactone has been prescribed since at least March. Related Data Home Medications Medication Instructions Recorded Confirmed amlodipine 5 mg tablet (Norvasc) 10 mg PO QDAY #0 04/11/12 05/20/21 glucosamine sulfate 500 mg tablet 1,500 mg PO DAILY 10/02/18 05/20/21 (Glucosamine) indomethacin 50 mg capsule 50 mg PO QID 10/02/18 05/20/21 losartan 100 mg tablet 100 mg PO DAILY 10/02/18 05/20/21 Respironics DreamStation CPAP #1 ea 11/26/18 05/20/21 atorvastatin 10 mg tablet 10 mg PO DAILY 05/27/19 05/20/21 sertraline 100 mg tablet 100 mg PO DAILY 03/21/20 05/20/21 carvedilol 25 mg tablet 25 mg PO BID 05/11/21 05/20/21 cholecalciferol (vitamin D3) 125 125 mcg PO DAILY 05/11/21 05/20/21 mcg (5,000 unit) capsule cyanocobalamin (vitamin B-12) 1,000 mcg PO DAILY 05/11/21 05/20/21 1,000 mcg capsule loperamide 2 mg tablet (Imodium 2 mg PO Q6H PRN 05/11/21 05/20/21 A-D) spironolactone 25 mg tablet 25 mg PO DAILY 05/11/21 05/20/21 tamsulosin 0.4 mg capsule (Flomax) 0.4 mg PO DAILY 05/11/21 05/20/21 terbinafine HCl 250 mg tablet 250 mg PO DAILY 05/11/21 05/20/21 vitamin B complex 1 tab PO DAILY 05/11/21 05/20/21 Previous Rx's Medication Instructions Recorded allopurinol 300 mg tablet 300 mg PO QDAY #90 06/05/12 fluconazole 150 mg tablet 150 mg PO QWEEK 28 Days #4 tab 05/20/21 Allergies Allergy/AdvReac Type Severity Reaction Status Date / Time RAKAN Inhibitors Allergy Unknown COUGH Verified 05/20/21 14:47 nadolol Allergy Unknown BRADYCARDIA Verified 05/20/21 14:47 Review of Systems Review of Systems Narrative: GENERAL: See HPI HEENT: Denies sinus pain, ear pain, sore throat, difficulty swallowing, dizziness. RESPIRATORY: Denies dyspnea, cough, wheezing, hemoptysis, sputum. CARDIOVASCULAR: Denies chest pain, palpitations, orthopnea, edema, GASTROINTESTINAL: Denies nausea, vomiting, abdominal pain, diarrhea, constipation, melena. : Denies dysuria, frequency, incontinence, hematuria, urinary retention. MUSCULOSKELETAL: denies weakness, joint pain, or bony pain SKIN: Denies rash, skin lesions, or other NEUROLOGIC: Denies weakness, headache, numbness, change in speech, confusion, seizures, incoordination. PSYCHIATRIC: No concerning psychosocial issues. 12 point review of systems is negative except for those stated above Patient History Medical History Acute low back pain Acute renal insufficiency Allergic rhinitis, cause unspecified (01/09/05) Depressive disorder, not elsewhere classified (07/26/03) Diabetes type 2, controlled Excessive daytime sleepiness Extrinsic asthma without status asthmaticus with acute exacerbation (01/22/03) Facet arthropathy, lumbar Glucose intolerance (03/27/04) Gout, unspecified Hyperparathyroidism, unspecified Hypertension Idiopathic peripheral autonomic neuropathy, unspecified (08/28/02) Intertrigo Mixed hyperlipidemia Obesity (BMI 30-39.9) Obstructive sleep apnea, adult Osteopenia (03/21/11) Proteinuria (11/06/05) Renal mass, right Right hip pain 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 Well-developed patient, in mild distress. GCS 15 HEAD: Superficial abrasion on forehead, no evidence of depressed skull fracture EYES: Pupils equal round and reactive. Extraocular motions intact. No scleral icterus. No injection or drainage. ENT: Dry mucous membranes Nose without bleeding, purulent drainage. Throat wi thout erythema, tonsillar hypertrophy or exudate. Airway patent. NECK: Trachea midline. Non tender CARDIOVASCULAR: Regular rate and rhythm without murmurs, gallops, or rubs. RESPIRATORY: Clear to auscultation. Breath sounds equal bilaterally. No wheezes, rales, or rhonchi. GASTROINTESTINAL: Abdomen soft, non-tender, nondistended. EXTREMITIES: No edema or joint tenderness. BACK: Nontender without deformity or crepitance. No flank tenderness. NEURO: AOx3. SKIN: No rash or erythema of visible areas Initial Vital Signs Initial Vital Signs: Vital Signs Temperature 97.0 F L 06/06/21 18:11 Pulse Rate 48 L 06/06/21 18:11 Respiratory Rate 12 06/06/21 18:11 Blood Pressure 153/64 H 06/06/21 18:11 Pulse Oximetry 98 06/06/21 18:11 Course Course Course Narrative: Soon after receipt initial round of labs I contacted the hospitalist and we sure the opinion that patient is likely in need of a higher level of care than we can provide here. Extensive interventions for hyperkalemia employed as noted above. After repeat of the labs there is very little change. At this point I contacted Nephrology at [facility] (Dr. Love and we discussed this case at length. The patient is in no respiratory distress and at this point has no significant EKG changes. We are both surprised by the lack of movement of the patient's potassium with therapy thus far. The patient does not meet any criteria for emergent dialysis, no facilities have beds currently. We discussed another round of therapies including insulin and dextrose as well as a bicarb drip. After above-stated and repeat therapies we will repeat labs and have another conversation. Orders Ordered: ED Orders 06/06/21 22:30 Basic Metabolic Panel Stat 06/06/21 23:05 Creatinine Urine Random Stat Sodium Urine Random Stat 06/07/21 02:02 EKG-12 Lead Stat 06/07/21 02:30 Basic Metabolic Panel Stat Sodium Chloride (Normal Saline 0.9%) 1,000 mls @ 150 mls/hr IV CONT JUDY Last Infusion: 06/06/21 20:57 Dose: 150 mls/hr Documented by: Admin: 06/06/21 18:50 Dose: 150 mls/hr Documented by: GREGORY Sodium Bicarbonate 50 meq/ (Sodium Chloride) 1,050 mls @ 125 mls/hr IV CONT JUDY Last Infusion: 06/06/21 23:58 Dose: 0 mls/hr Documented by: Admin: 06/06/21 22:03 Dose: 125 mls/hr Documented by: REMBERTO Sodium Bicarbonate 150 meq/ (Sodium Chloride) 1,150 mls @ 250 mls/hr IV CONT JUDY Last Infusion: 06/07/21 05:29 Dose: 0 mls/hr Documented by: Admin: 06/06/21 23:38 Dose: 250 mls/hr Documented by: PAM Discontinued Medications Albuterol (Albuterol 2.5 Mg/3 Ml Neb (Adult)) 20 mg INH NOW ONE Stop: 06/06/21 19:53 Last Admin: 06/06/21 20:33 Dose: 20 mg Documented by: COLTON Aspirin (Aspirin 81 Mg Chew Tab) 324 mg PO NOW ONE Stop: 06/06/21 18:12 Last Admin: 06/06/21 18:56 Dose: 324 mg Documented by: GREGORY Dextrose (Dextrose 50 % In Water 25 Gm/50 Ml Syringe) 25 gm IV NOW ONE Stop: 06/06/21 19:42 Last Admin: 06/06/21 20:02 Dose: 25 gm Documented by: GREGORY Dextrose (Dextrose 50 % In Water 25 Gm/50 Ml Syringe) 25 gm IV NOW ONE Stop: 06/06/21 23:15 Last Admin: 06/06/21 23:29 Dose: 25 gm Documented by: REMBERTO Furosemide (Furosemide 40 Mg/4 Ml Vial) 40 mg IV NOW ONE Stop: 06/06/21 19:04 Last Admin: 06/06/21 19:32 Dose: 40 mg Documented by: REMBERTO Calcium Gluconate 4.65 meq/ (Sodium Chloride) 60 mls @ 180 mls/hr IV NOW ONE Stop: 06/06/21 20:00 Last Infusion: 06/06/21 20:57 Dose: 0 mls/hr Documented by: Admin: 06/06/21 19:57 Dose: 180 mls/hr Documented by: GREGORY Insulin Human Regular (Insulin Regular 100 Unit/Ml 3 Ml Vial) 5 unit IV NOW ONE Stop: 06/06/21 19:42 Last Admin: 06/06/21 19:55 Dose: 5 unit Documented by: GREGORY Cosigned by: BELA Insulin Human Regular (Insulin Regular 100 Unit/Ml 3 Ml Vial) 10 unit IV NOW ONE Stop: 06/06/21 23:15 Last Admin: 06/06/21 23:29 Dose: 10 unit Documented by: REMBERTO Josephigned by: PAM Lidocaine HCl (Lidocaine Jelly 2% 5 Ml) 1 applic TOP NOW ONE Stop: 06/06/21 23:19 Last Admin: 06/06/21 23:59 Dose: Not Given Documented by: REMBERTO Lidocaine HCl (Lidocaine 2% (Glydo) 6 Ml Gel) 6 ml TOP NOW ONE Stop: 06/06/21 23:25 Last Admin: 06/07/21 00:01 Dose: 6 ml Documented by: REMBERTO Vital Signs Vital signs: Vital Signs - 8 hr 06/06/21 22:00 06/06/21 22:30 06/06/21 23:00 Pulse Rate 52 L 51 L 60 Respiratory Rate 20 27 H 46 H Blood Pressure Pulse Oximetry 97 95 92 06/06/21 23:02 06/06/21 23:04 06/06/21 23:05 Pulse Rate 59 L 53 L Respiratory Rate 29 H 22 Blood Pressure 143/61 H 145/65 H 145/65 H Pulse Oximetry 95 97 06/06/21 23:30 06/06/21 23:31 06/07/21 00:00 Pulse Rate 52 L 52 L 55 L Respiratory Rate 24 21 27 H Blood Pressure 136/62 Pulse Oximetry 95 95 95 06/07/21 00:01 06/07/21 00:30 06/07/21 00:31 Pulse Rate 55 L 55 L 56 L Respiratory Rate 22 26 H 27 H Blood Pressure 136/60 137/70 Pulse Oximetry 95 94 94 06/07/21 01:00 06/07/21 01:30 06/07/21 01:54 Pulse Rate 56 L 58 L 59 L Respiratory Rate 23 23 17 Blood Pressure 138/63 143/63 H 134/60 Pulse Oximetry 95 95 96 06/07/21 02:00 06/07/21 02:30 06/07/21 02:31 Pulse Rate 60 60 60 Respiratory Rate 23 26 H 28 H Blood Pressure 144/60 H 137/60 Pulse Oximetry 95 95 95 06/07/21 03:00 06/07/21 03:01 06/07/21 03:30 Pulse Rate 60 60 63 Respiratory Rate 25 H 22 22 Blood Pressure 131/60 Pulse Oximetry 95 95 97 06/07/21 03:31 06/07/21 04:00 06/07/21 04:01 Pulse Rate 64 63 64 Respiratory Rate 24 26 H 27 H Blood Pressure 146/64 H 143/62 H Pulse Oximetry 97 96 97 06/07/21 04:30 06/07/21 05:00 06/07/21 05:01 Pulse Rate 65 63 65 Respiratory Rate 20 22 23 Blood Pressure 138/63 144/64 H Pulse Oximetry 96 96 96 - Fall Lab Data Result diagrams: 06/06/21 18:25 06/07/21 02:30 Labs: Lab Results 06/06/21 06/06/21 06/06/21 Range/Units 18:25 19:11 19:12 WBC 9.5 (4.5-11.0) X10^3/uL RBC 3.79 L (4.5-5.9) X10^6/uL Hgb 12.2 L (13.5-17.5) g/dL Hct 37.1 L (41-53) % MCV 97.8 (80-100) fL MCH 32.0 (26-34) PG MCHC 32.7 (30-36) % RDW 15.8 H (11.6-14.8) % Plt Count 156 (150-400) X10^3/uL Neut % (Auto) 77.4 H (50-75) % Lymph % (Auto) 15.0 L (25-40) % Dickenson % (Auto) 5.0 (3-14) % Eos % (Auto) 2.3 (2-4) % Baso % (Auto) 0.3 (0-2) % Neut # (Auto) 7400 H (4343-8385) /uL Lymph # (Auto) 1400 (0340-8153) /uL Dickenson # (Auto) 500 (0-900) /uL Eos # (Auto) 200 (0-450) /uL Baso # (Auto) 0 (0-100) /uL VBG pH (7.33-7.43) VBG pCO2 (45-50) mmHg VBG pO2 (35-45) mmHg VBG HCO3 (23-28) mmol/L VBG Total CO2 (24-29) mmol/L VBG O2 Saturation (70-75) % VBG Base Excess (0-4) mmol/L Sodium 140 (137-145) mmol/L Potassium 8.8 H* (3.4-5.1) mmol/L Chloride 119 H (98-107) mmol/L Carbon Dioxide 13 L (22-32) mmol/L BUN 55 H (9-20) mg/dL Creatinine 2.00 H (0.66-1.25) mg/dL Estimated GFR 32.1 L (>60) mL/min BUN/Creatinine Ratio 27.5 H (6-22) Glucose 120 H (80-110) mg/dL Calcium 12.1 H (8.4-10.2) mg/dL Total Bilirubin 0.4 (0.2-1.3) mg/dL AST 19 (17-59) IU/L ALT 18 (<50) IU/L Alkaline Phosphatase 84 (38-126) U/L Total Creatine Kinase 93 (55-170) U/L CK-MB (CK-2) TNP CK-MB (CK-2) Rel Index TNP Troponin I 0.016 (0.01-0.034) ng/mL NT-Pro-B Natriuret Pep 430 (<450) pg/mL Total Protein 7.3 (6.3-8.2) g/dL Albumin 4.6 (3.5-5.0) g/dL Globulin 2.7 (1.7-4.1) g/dL Albumin/Globulin Ratio 1.7 (1.0-2.8) Lipase 125 (23-300) U/L Ur Random Sodium (30-90) mmol/L Urine Creatinine mg/dL SARS-CoV-2 (PCR) (Negative) 06/06/21 06/06/21 06/06/21 Range/Units 19:23 20:14 22:30 WBC (4.5-11.0) X10^3/uL RBC (4.5-5.9) X10^6/uL Hgb (13.5-17.5) g/dL Hct (41-53) % MCV (80-100) fL MCH (26-34) PG MCHC (30-36) % RDW (11.6-14.8) % Plt Count (150-400) X10^3/uL Neut % (Auto) (50-75) % Lymph % (Auto) (25-40) % Dickenson % (Auto) (3-14) % Eos % (Auto) (2-4) % Baso % (Auto) (0-2) % Neut # (Auto) (7041-1962) /uL Lymph # (Auto) (6261-0642) /uL Dickenson # (Auto) (0-900) /uL Eos # (Auto) (0-450) /uL Baso # (Auto) (0-100) /uL VBG pH 7.09 L* (7.33-7.43) VBG pCO2 48.6 (45-50) mmHg VBG pO2 33 L (35-45) mmHg VBG HCO3 15 L (23-28) mmol/L VBG Total CO2 16 L (24-29) mmol/L VBG O2 Saturation 43 L (70-75) % VBG Base Excess -15.0 L (0-4) mmol/L Sodium 140 (137-145) mmol/L Potassium 8.7 H* (3.4-5.1) mmol/L Chloride 120 H (98-107) mmol/L Carbon Dioxide 13 L (22-32) mmol/L BUN 58 H (9-20) mg/dL Creatinine 2.03 H (0.66-1.25) mg/dL Estimated GFR 31.6 L (>60) mL/min BUN/Creatinine Ratio 28.6 H (6-22) Glucose 105 (80-110) mg/dL Calcium 12.1 H (8.4-10.2) mg/dL Total Bilirubin (0.2-1.3) mg/dL AST (17-59) IU/L ALT (<50) IU/L Alkaline Phosphatase (38-126) U/L Total Creatine Kinase (55-170) U/L CK-MB (CK-2) CK-MB (CK-2) Rel Index Troponin I (0.01-0.034) ng/mL NT-Pro-B Natriuret Pep (<450) pg/mL Total Protein (6.3-8.2) g/dL Albumin (3.5-5.0) g/dL Globulin (1.7-4.1) g/dL Albumin/Globulin Ratio (1.0-2.8) Lipase (23-300) U/L Ur Random Sodium (30-90) mmol/L Urine Creatinine mg/dL SARS-CoV-2 (PCR) Negative (Negative) 06/06/21 06/07/21 Range/Units 23:05 02:30 WBC (4.5-11.0) X10^3/uL RBC (4.5-5.9) X10^6/uL Hgb (13.5-17.5) g/dL Hct (41-53) % MCV (80-100) fL MCH (26-34) PG MCHC (30-36) % RDW (11.6-14.8) % Plt Count (150-400) X10^3/uL Neut % (Auto) (50-75) % Lymph % (Auto) (25-40) % Dickenson % (Auto) (3-14) % Eos % (Auto) (2-4) % Baso % (Auto) (0-2) % Neut # (Auto) (6145-0510) /uL Lymph # (Auto) (8733-8912) /uL Dickenson # (Auto) (0-900) /uL Eos # (Auto) (0-450) /uL Baso # (Auto) (0-100) /uL VBG pH (7.33-7.43) VBG pCO2 (45-50) mmHg VBG pO2 (35-45) mmHg VBG HCO3 (23-28) mmol/L VBG Total CO2 (24-29) mmol/L VBG O2 Saturation (70-75) % VBG Base Excess (0-4) mmol/L Sodium 141 (137-145) mmol/L Potassium 7.8 H* (3.4-5.1) mmol/L Chloride 119 H (98-107) mmol/L Carbon Dioxide 16 L (22-32) mmol/L BUN 56 H (9-20) mg/dL Creatinine 1.93 H (0.66-1.25) mg/dL Estimated GFR 33.5 L (>60) mL/min BUN/Creatinine Ratio 29.0 H (6-22) Glucose 99 (80-110) mg/dL Calcium 11.4 H (8.4-10.2) mg/dL Total Bilirubin (0.2-1.3) mg/dL AST (17-59) IU/L ALT (<50) IU/L Alkaline Phosphatase (38-126) U/L Total Creatine Kinase (55-170) U/L CK-MB (CK-2) CK-MB (CK-2) Rel Index Troponin I (0.01-0.034) ng/mL NT-Pro-B Natriuret Pep (<450) pg/mL Total Protein (6.3-8.2) g/dL Albumin (3.5-5.0) g/dL Globulin (1.7-4.1) g/dL Albumin/Globulin Ratio (1.0-2.8) Lipase (23-300) U/L Ur Random Sodium 118 H (30-90) mmol/L Urine Creatinine 34.3 mg/dL SARS-CoV-2 (PCR) (Negative) MDM Narrative Medical decision making narrative: 1900 -lab called with critical potassium and states there may be an error on there and and they will come for a repeat draw. 0000 - call to Dr. Mckeon at [facility]. DIscussed in detail. Agrees with current treatments. No current indication for emergent HD. He recommends another round of insulin and dextrose as well as continuing the bicarb drip, read drawing labs and placing further phone calls at that point time. 0330 - Call back to Dr. Mckeon. No meaningful change in numbers 0346 - [facility] No beds 0400 - Prov may have a bed Patient making urine, szymanski in place. Question potential interaction between Spironolactone and Loperamide? Patient does have a recent history of diarrhea, mucous membranes are dry and he is clinically dehydrated. Creatinine bump good surely be pre renal. Renal ultrasound obtained is very reassuring and shows no obstructive uropathy. lasix given before FeNa could be calculated 0510 - Dr. Centeno ([facility] ICU) happy to accept. [facility] activated. Critical Care Time Critical Care Time Critical Care Time: Yes Total Critical Care Time: 120 Attestation: The high probability of a clinically significant, sudden or life threatening deterioration of the [CV] system(s) required my full and direct attention, intervention and personal management. The aggregate critical care time was [120] minutes. This time is in addition to time spent performing reported procedures but includes the following: [x] Data Review and interpretation [x] Patient assessment and monitoring of vital signs [x] Documentation [x] Medication orders and management Discharge Plan Departure Patient Disposition: [facility] Clinical Impression: Acute renal failure, Acute hyperkalemia Prescriptions: No Action fluconazole 150 mg tablet 150 mg PO QWEEK 28 Days Qty: 4 RF: 0 amlodipine [Norvasc] 5 MG tablet 10 mg PO QDAY Qty: 0 RF: 0 allopurinol 300 MG tablet 300 mg PO QDAY Qty: 90 RF: 0 indomethacin 50 mg Capsule 50 mg PO QID RF: 0 glucosamine sulfate [Glucosamine] 500 mg Tablet 1,500 mg PO DAILY RF: 0 losartan 100 mg Tablet 100 mg PO DAILY RF: 0 sertraline 100 mg tablet 100 mg PO DAILY RF: 0 (DME) Respironics DreamStation CPAP Qty: 1 RF: 0 atorvastatin 10 mg tablet 10 mg PO DAILY RF: 0 carvedilol 25 mg tablet 25 mg PO BID RF: 0 cholecalciferol (vitamin D3) 125 mcg (5,000 unit) capsule 125 mcg PO DAILY RF: 0 loperamide [Imodium A-D] 2 mg tablet 2 mg PO Q6H PRNRF: 0 spironolactone 25 mg tablet 25 mg PO DAILY RF: 0 tamsulosin [Flomax] 0.4 mg capsule 0.4 mg PO DAILY RF: 0 terbinafine HCl 250 mg tablet 250 mg PO DAILY RF: 0 vitamin B complex Tablet 1 tab PO DAILY RF: 0 cyanocobalamin (vitamin B-12) 1,000 mcg capsule 1,000 mcg PO DAILY RF: 0 Referrals: Jose Alberto Alexis MD [Primary Care Provider] -
[2021-06-06 18:30] LABS: Add Manual Diff / Slide Review NO; Basophils Absolute Auto 0 /uL (0-100); Basophils Percent Auto 0.3 % (0-2); Eosinophils Absolute Auto 200 /uL (0-450); Eosinophils Percent Auto 2.3 % (2-4); Hematocrit 37.1 % (41-53); Hemoglobin 12.2 g/dL (13.5-17.5); Lymphocytes Absolute Auto 1400 /uL (1100-4500); Mean Corpuscular HGB Conc 32.7 % (30-36); Mean Corpuscular Volume 97.8 fL (80-100); Monocytes Absolute Auto 500 /uL (0-900); Neutrophils Absolute Auto 7400 /uL (1500-7000); Neutrophils Percent Auto 77.4 % (50-75); Platelet Count 156 X10^3/uL (150-400); Red Blood Cell Count 3.79 X10^6/uL (4.5-5.9); Red Cell Distribution Width 15.8 % (11.6-14.8); White Blood Cell Count 9.5 X10^3/uL (4.5-11.0)
[2021-06-06] MEDS: SODIUM CHLORIDE 0.9% 1,000 ML 150 ML IV (18:50)
[2021-06-06] MEDS: ASPIRIN 81 MG CHEW TAB 324 MG PO (18:56)
--- NOTE | 2021-06-06 19:01 | DI.CT.S_ITS ---
PROCEDURE: CT HEAD/BRAIN WO CON INDICATIONS: falls, weakness TECHNIQUE: Noncontrast 4.5 mm thick angled axial sections acquired from the foramen magnum to the vertex, with coronal and sagittal reformats. For radiation dose reduction, the following was used: automated exposure control, adjustment of mA and/or kV according to patient size. COMPARISON: None. FINDINGS: Image quality: Excellent. CSF spaces: Basal cisterns are patent. No extra-axial fluid collections. The ventricles are symmetric in size and shape. Brain: No intracranial bleeds or masses. There is cerebral volume loss for age, with resultant ventricular and sulcal prominence. There are periventricular and deep white matter chronic small vessel ischemic changes. There is intracranial internal carotid artery atherosclerosis. Skull and face: Calvarium and visualized facial bones appear intact, without suspicious lesions. Sinuses: Visualized sinuses demonstrate opacification of the left frontal sinus. IMPRESSION: 1. No acute intracranial process. 2. Moderate atrophy and chronic microvascular ischemic changes. Dictated by: Jody Nino M.D. on 06/06/2021 at 19:57 Approved by: Jody Nino M.D. on 06/06/2021 at 19:58
[2021-06-06] MEDS: FUROSEMIDE 40 MG/4 ML VIAL IV (19:32)
[2021-06-06 19:39] LABS: Alanine Aminotransferase 18 IU/L (<50); Albumin 4.6 g/dL (3.5-5.0); Albumin Globulin Ratio 1.7 (1.0-2.8); Alkaline Phosphatase 84 U/L (38-126); Aspartate Aminotransferase 19 IU/L (17-59); BUN Creatinine Ratio 27.5 (6-22); Bilirubin Total 0.4 mg/dL (0.2-1.3); Blood Urea Nitrogen 55 mg/dL (9-20); Calcium 12.1 mg/dL (8.4-10.2); Carbon Dioxide 13 mmol/L (22-32); Chloride 119 mmol/L (98-107); Creatine Kinase 93 U/L (55-170); Estimated Glomerular Filt Rate 32.1 mL/min (>60); Globulin 2.7 g/dL (1.7-4.1); Glucose 120 mg/dL (80-110); HEMOLYSIS < 15 (0-50); Lipase 125 U/L (23-300); Sodium 140 mmol/L (137-145); Total Protein 7.3 g/dL (6.3-8.2)
[2021-06-06 19:42] LABS: Potassium 8.8 mmol/L (3.4-5.1)
--- NOTE | 2021-06-06 19:43 | DI.US.S_ITS ---
PROCEDURE: US RENAL COMPLETE INDICATIONS: RENAL FAILURE TECHNIQUE: Real-time scanning was performed of the kidneys and bladder, with image documentation. COMPARISON: [facility], , RENAL COMPLETE, 07/13/2020, 12:25. FINDINGS: Kidneys: Kidneys are normal in size. Right kidney measures 11.9 cm long; left kidney measures 17.3 cm long. Right renal cortical thickness is 1.7 cm; left renal cortical thickness is 2.1 cm. Renal cortical echotexture is normal. No hydronephrosis or nephrolithiasis. No suspicious solid mass lesions. Right renal cyst is present measuring 3.5 x 2.1 x 3.0 cm. Similar appearing cyst is noted on the left measuring 10.4 x 9.1 x 9.4 cm. Bladder: Pre-void bladder volume is 420 mL. Post-void residual is 420 mL, as unable to void. Pre-void images demonstrate no intraluminal masses or stones. On pre-void images, neither ureteral jets are noted with color Doppler interrogation. (Of note, ureteral jets may not be detectable in up to 25% of cases due to insufficient differences in specific gravity between ureteral and bladder urine). Miscellaneous: No free pelvic fluid. IMPRESSION: Bilateral simple renal cysts. No obstruction. Dictated by: Jody Nino M.D. on 06/06/2021 at 21:01 Approved by: Jody Nino M.D. on 06/06/2021 at 21:02
[2021-06-06 19:45] LABS: NT-proBNP (BNP-Adult 18+) 430 pg/mL (<450)
[2021-06-06 19:47] LABS: Troponin I 0.016 ng/mL (0.01-0.034)
[2021-06-06] MEDS: INSULIN REGULAR 100 UNIT/ML 3 ML VIAL IV (19:55)
[2021-06-06] MEDS: CALCIUM GLUCONATE 4.65 MEQ in SODIUM CHLORIDE 0.9% 50 ML 180 ML IV (19:57)
[2021-06-06] MEDS: DEXTROSE 50 % IN WATER 25 GM/50 ML SYRINGE IV ×2 (20:02→23:29)
[2021-06-06 20:19] LABS: COVID19 - ADMIT (NP swab/PCR) Negative (Negative)
[2021-06-06 20:22] LABS: PCO2 VBG 48.6 mmHg (45-50)
[2021-06-06 20:23] LABS: HCO3 VBG 15 mmol/L (23-28); Oxygen Saturation VBG 43 % (70-75); PO2 VBG 33 mmHg (35-45); Total CO2 VBG 16 mmol/L (24-29)
[2021-06-06 20:24] LABS: pH VBG 7.09 (7.33-7.43)
[2021-06-06] MEDS: ALBUTEROL 2.5 MG/3 ML NEB (ADULT) 20 MG INH (20:33)
--- NOTE | 2021-06-06 20:38 | PC.NURSE ---
Patient reports over the last month or so increase weakness in lower legs bilaterally I will be standing and my knees will shake and give out patient reports intermittently having similar shakes in arms. Patient appears to have dry mucous membranes, states he hasn't eaten much today but usually drinks lots of water. Patient currently being followed by Dr Alexis for diarrhea. Reports maybe 5-6 episodes a day
[2021-06-06] MEDS: SODIUM BICARB 8.4% VIAL 50 MEQ in SODIUM CHLORIDE 0.9% 1,000 ML 125 MEQ IV (22:03)
[2021-06-06 22:50] LABS: BUN Creatinine Ratio 28.6 (6-22); Blood Urea Nitrogen 58 mg/dL (9-20); Calcium 12.1 mg/dL (8.4-10.2); Carbon Dioxide 13 mmol/L (22-32); Chloride 120 mmol/L (98-107); Estimated Glomerular Filt Rate 31.6 mL/min (>60); Glucose 105 mg/dL (80-110); Sodium 140 mmol/L (137-145)
[2021-06-06 22:58] LABS: HEMOLYSIS 68 (0-50)
[2021-06-06 22:59] LABS: Potassium 8.7 mmol/L (3.4-5.1)
[2021-06-06] MEDS: INSULIN REGULAR 100 UNIT/ML 3 ML VIAL 10 UNIT IV (23:29)
[2021-06-06] MEDS: SODIUM CHLORIDE 0.9% IV (23:38)
[2021-06-06] MEDS: SODIUM BICARB IV (23:38)
[2021-06-07] VITALS (21 sets, daily range): BP systolic 128–146; BP diastolic 60–70; PULSE 55–71; RESP 17–28; O2SAT 94–97
[2021-06-07] MEDS: LIDOCAINE 2% (GLYDO) 6 ML GEL TOP (00:01)
--- NOTE | 2021-06-07 00:07 | PC.NURSE ---
szymanski cath placed with aseptic technique.tolerated well.
[2021-06-07 00:16] LABS: Creatinine Urine Random 34.3 mg/dL; Sodium Urine Random 118 mmol/L (30-90)
[2021-06-07 02:50] LABS: Blood Urea Nitrogen 56 mg/dL (9-20); Calcium 11.4 mg/dL (8.4-10.2); Carbon Dioxide 16 mmol/L (22-32); Chloride 119 mmol/L (98-107); Estimated Glomerular Filt Rate 33.5 mL/min (>60); Glucose 99 mg/dL (80-110); HEMOLYSIS < 15 (0-50); Sodium 141 mmol/L (137-145)
[2021-06-07 02:53] LABS: Potassium 7.8 mmol/L (3.4-5.1)
--- NOTE | 2021-06-07 06:56 | PC.NURSE ---
Report called to Lamin SUERO at [facility].,phone # [phone].
== END 2021-06-07 06:10 | disposition short-term general hospital (02) ==
PROVIDERS: Emergency Provider Emergency Medicine; Family Provider Internal Medicine; PCP Internal Medicine
DX: N17.9 Acute kidney failure, unspecified (principal); E87.5 Hyperkalemia; S09.90XA Unspecified injury of head, initial encounter; Z20.822 Contact with and (suspected) exposure to COVID-19; W19.XXXA Unspecified fall, initial encounter
CPT/HCPCS: 36415; 70450; 76770; 80048; 80053; 82550; 82570; 82805; 83690; 83880; 84300; 84484; 85025; 87635; 93005; 93010; 96361; 96374; 96375; 99285; 99291; 99292; C9803; J0610; J1940; J7613

== ENCOUNTER → 2021-06-14 10:44 | Outpatient (CLI) | payer MEDICARE, SELFPAY ==
[2021-06-14 12:26] LABS: Hematocrit 32.9 % (41-53); Hemoglobin 10.8 g/dL (13.5-17.5); Mean Corpuscular HGB Conc 32.7 % (30-36); Mean Corpuscular Hemoglobin 32.3 PG (26-34); Mean Corpuscular Volume 98.7 fL (80-100); Platelet Count 171 X10^3/uL (150-400); Red Blood Cell Count 3.34 X10^6/uL (4.5-5.9); Red Cell Distribution Width 15.9 % (11.6-14.8); White Blood Cell Count 6.9 X10^3/uL (4.5-11.0)
[2021-06-14 12:36] LABS: BUN Creatinine Ratio 23.2 (6-22); Blood Urea Nitrogen 33 mg/dL (9-20); Calcium 10.8 mg/dL (8.4-10.2); Carbon Dioxide 22 mmol/L (22-32); Chloride 111 mmol/L (98-107); Estimated Glomerular Filt Rate 47.7 mL/min (>60); Glucose 111 mg/dL (80-110); HEMOLYSIS < 15 (0-50); Sodium 142 mmol/L (137-145)
== END ==
PROVIDERS: Family Provider Internal Medicine; PCP Internal Medicine; Referring Provider Internal Medicine; Visit Provider Internal Medicine
DX: E87.5 Hyperkalemia (principal); R19.7 Diarrhea, unspecified
CPT/HCPCS: 36415; 80048; 85027

== ENCOUNTER → 2021-07-14 09:58 | Outpatient (CLI) | payer MEDICARE, SELFPAY ==
[2021-07-14 12:21] LABS: BUN Creatinine Ratio 17.1 (6-22); Blood Urea Nitrogen 19 mg/dL (9-20); Calcium 10.6 mg/dL (8.4-10.2); Carbon Dioxide 29 mmol/L (22-32); Chloride 105 mmol/L (98-107); Estimated Glomerular Filt Rate > 60.0 mL/min (>60); Glucose 151 mg/dL (80-110); HEMOLYSIS < 15 (0-50); Potassium 4.4 mmol/L (3.4-5.1); Sodium 141 mmol/L (137-145)
== END ==
PROVIDERS: Family Provider Internal Medicine; PCP Internal Medicine; Referring Provider Internal Medicine; Visit Provider Internal Medicine
DX: I10 Essential (primary) hypertension (principal)
CPT/HCPCS: 36415; 80048

== ENCOUNTER → 2021-09-01 12:55 | Outpatient (CLI) | payer MEDICARE, SELFPAY ==
--- NOTE | 2021-09-01 | DI.RAD.S_ITS ---
PROCEDURE: XR SHOULDER LT MIN 2V INDICATIONS: ACUTE PAIN OF LEFT SHOULDER TECHNIQUE: 3 views of the shoulder were acquired. COMPARISON: None. FINDINGS: Bones: No fractures or dislocations. 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 Mild to moderate glenohumeral joint osteoarthritic changes also noted. No suspicious bony lesions. Visualized ribs appear intact. Soft tissues: No suspicious soft tissue calcifications. IMPRESSION: No acute shoulder fracture or dislocation. 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 Dictated by: Beck Stokes M.D. on 09/01/2021 at 13:29 Approved by: Beck Stokes M.D. on 09/01/2021 at 13:30
== END ==
PROVIDERS: Family Provider Internal Medicine; PCP Internal Medicine; Referring Provider Student in an Organized Health Care Education/Training Program; Visit Provider Student in an Organized Health Care Education/Training Program
DX: M25.512 Pain in left shoulder (principal); M19.012 Primary osteoarthritis, left shoulder
CPT/HCPCS: 73030

== ENCOUNTER 2022-07-05 18:43 | Observation (INO) | payer OTHER, SELFPAY ==
[2022-07-05 18:51] VITALS: BP 164/73; PULSE 66; RESP 18; TEMP 36.8; O2SAT 96; BMI 34.7
--- NOTE | 2022-07-05 18:57 | DI.RAD.S_ITS ---
PROCEDURE: XR CHEST 2V INDICATIONS: shortness of breath TECHNIQUE: 2 views of the chest were acquired. COMPARISON: [facility], , XR CHEST 1V, 04/01/2021, 10:00. FINDINGS: Surgical changes and devices: None. Lungs and pleura: Patchy airspace opacities are seen bilaterally throughout the mid to lower lung zones. Slight blunting of the left costophrenic angle may be secondary to pleural thickening or a trace pleural effusion. Mediastinum: Mediastinal contours are normal. Heart size is enlarged and stable. Bones and chest wall: No suspicious bony abnormalities. Soft tissues appear unremarkable. IMPRESSION: 1. Diffuse bilateral patchy airspace opacities are suspicious for pneumonia versus less likely pulmonary edema. 2. Stable cardiomegaly. Approved by: Lamin Shaw M.D. on 07/05/2022 at 20:14
[2022-07-05 19:58] LABS: Lactate (Lactic Acid) 1.1 mmol/L (0.7-2.1)
[2022-07-05 20:01] LABS: Add Manual Diff / Slide Review NO; Alanine Aminotransferase 16 IU/L (<50); Albumin 3.9 g/dL (3.5-5.0); Albumin Globulin Ratio 1.3 (1.0-2.8); Alkaline Phosphatase 111 U/L (38-126); Aspartate Aminotransferase 18 IU/L (17-59); BUN Creatinine Ratio 20.7 (6-22); Basophils Absolute Auto 0 /uL (0-100); Basophils Percent Auto 0.6 % (0-2); Bilirubin Total 0.8 mg/dL (0.2-1.3); Blood Urea Nitrogen 24 mg/dL (9-20); Calcium 10.2 mg/dL (8.4-10.2); Carbon Dioxide 24 mmol/L (22-32); Chloride 105 mmol/L (98-107); Eosinophils Absolute Auto 400 /uL (0-450); Eosinophils Percent Auto 4.9 % (2-4); Estimated Glomerular Filt Rate > 60 mL/min (>60); Globulin 3.1 g/dL (1.7-4.1); Glucose 163 mg/dL (80-110); Hematocrit 35.4 % (41-53); Lymphocytes Absolute Auto 1600 /uL (1100-4500); Lymphocytes Percent Auto 21.6 % (25-40); Mean Corpuscular HGB Conc 33.9 % (30-36); Mean Corpuscular Hemoglobin 32.3 PG (26-34); Monocytes Absolute Auto 700 /uL (0-900); Neutrophils Absolute Auto 4700 /uL (1500-7000); Neutrophils Percent Auto 63.9 % (50-75); Platelet Count 160 X10^3/uL (150-400); Potassium 3.9 mmol/L (3.4-5.1); Red Blood Cell Count 3.72 X10^6/uL (4.5-5.9); Red Cell Distribution Width 16.3 % (11.6-14.8); Sodium 140 mmol/L (137-145); White Blood Cell Count 7.3 X10^3/uL (4.5-11.0)
[2022-07-05 20:11] LABS: HEMOLYSIS < 15 (0-50); NT-proBNP (BNP-Adult 18+) 2960 pg/mL (<450)
[2022-07-06 00:48] VITALS: BP 165/77; PULSE 65; RESP 18; O2SAT 95
--- NOTE | 2022-07-06 01:18 | ED_ITS ---
HPI - SOB/Dyspnea General Chief Complaint: Shortness of Breath/Dyspnea Stated Complaint: SOB Time Seen by Provider: 07/06/22 01:11 Source: patient Mode of arrival: Ambulatory Limitations: no limitations History of Present Illness HPI Narrative: Patient here with daughter. Complains of dyspnea on exertion. Not with lying flat. He is had leg swelling. No calf pain. No prior history of congestive heart failure. No fever chills but has had chronic cough which is not new for him. No prior echocardiogram. Related Data Home Medications Medication Instructions Recorded Confirmed amlodipine 5 mg tablet (Norvasc) 10 mg PO QDAY ##0 04/11/12 07/06/22 glucosamine sulfate 500 mg tablet 1,500 mg PO DAILY 10/02/18 07/06/22 (Glucosamine) indomethacin 50 mg capsule 50 mg PO QID 10/02/18 07/06/22 Respironics DreamStation CPAP #1 ea 11/26/18 07/06/22 atorvastatin 10 mg tablet 10 mg PO DAILY 05/27/19 07/06/22 sertraline 100 mg tablet 100 mg PO DAILY 03/21/20 07/06/22 carvedilol 25 mg tablet 25 mg PO BID 05/11/21 07/06/22 cholecalciferol (vitamin D3) 125 125 mcg PO DAILY 05/11/21 07/06/22 mcg (5,000 unit) capsule cyanocobalamin (vitamin B-12) 1,000 mcg PO DAILY 05/11/21 07/06/22 1,000 mcg capsule loperamide 2 mg tablet (Imodium 2 mg PO Q6H PRN sleep apnea 05/11/21 07/06/22 A-D) tamsulosin 0.4 mg capsule (Flomax) 0.4 mg PO DAILY 05/11/21 07/06/22 vitamin B complex 1 tab PO DAILY 05/11/21 07/06/22 Previous Rx's Medication Instructions Recorded allopurinol 300 mg tablet 300 mg PO QDAY ##90 06/05/12 Allergies Allergy/AdvReac Type Severity Reaction Status Date / Time RAKAN Inhibitors Allergy Unknown COUGH Verified 07/25/21 09:52 nadolol Allergy Unknown BRADYCARDIA Verified 07/25/21 09:52 Review of Systems Review of Systems Narrative: GENERAL: Denies chills, fatigue, malaise, fever, sweats. HEENT: Denies sinus pain, ear pain, sore throat RESPIRATORY: Positive dyspnea, cough CARDIOVASCULAR: Denies chest pain, palpitations, positive peripheral edema GASTROINTESTINAL: Denies nausea, vomiting, abdominal pain : Denies dysuria, frequency, hematuria MUSCULOSKELETAL: denies muscle or bony pain SKIN: Denies rash, skin lesions NEUROLOGIC: Denies weakness, numbness ROS Unobtainable: All systems reviewed & are unremarkable except as noted in HPI and below Patient History Medical History Acute low back pain Acute renal insufficiency Allergic rhinitis, cause unspecified (01/09/05) Depressive disorder, not elsewhere classified (07/26/03) Diabetes type 2, controlled Excessive daytime sleepiness Extrinsic asthma without status asthmaticus with acute exacerbation (01/22/03) Facet arthropathy, lumbar Glucose intolerance (03/27/04) Gout, unspecified Hyperparathyroidism, unspecified Hypertension Idiopathic peripheral autonomic neuropathy, unspecified (08/28/02) [employer]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 EYES: Pupils equal round No scleral icterus. ENT: Mucous membranes moist. NECK: Trachea midline. CARDIOVASCULAR: Regular rate and rhythm without murmurs RESPIRATORY: Speaking full sentences but there is bibasilar rales. No wheezing. GASTROINTESTINAL: Abdomen soft, non-tender EXTREMITIES: No gross deformities. BACK: No flank tenderness. NEURO: AOx4. SKIN: Warm and dry, there is 3+ bilateral ankle edema PSYCH: Not anxious, is cooperative Initial Vital Signs Initial Vital Signs: Vital Signs Temperature 98.3 F 07/05/22 18:51 Pulse Rate 66 07/05/22 18:51 Respiratory Rate 18 07/05/22 18:51 Blood Pressure 164/73 H 07/05/22 18:51 Pulse Oximetry 96 07/05/22 18:51 Oxygen Delivery Method 07/05/22 18:51 Course Course Course Narrative: No new issues during course of stay Decision to Admit Date: 07/06/22 Decision to Admit time: 01:20 Orders Ordered: ED Orders 07/06/22 01:30 Respiratory Panel (Film Array) Stat 07/06/22 01:44 Procalcitonin Stat 07/06/22 02:56 Education, smoking cessation ONGOING 07/06/22 09:00 Basic Metabolic Panel DAILY NT-proBNP (BNP-Adult 18+) Routine 07/07/22 09:00 Basic Metabolic Panel DAILY Acetaminophen (Acetaminophen 325 Mg Tablet) 650 mg PO Q6H PRN PRN Reason: Fever/Mild Pain (1-3) Amlodipine Besylate (Amlodipine 5 Mg Tablet) 10 mg PO DAILY JUDY Atorvastatin Calcium (Atorvastatin 20 Mg Tablet) 10 mg PO DAILY [facility] Carvedilol (Carvedilol 12.5 Mg Tablet) 25 mg PO BID JUDY Enoxaparin Sodium (Enoxaparin 40 Mg/0.4 Ml Syringe) 40 mg SUBCUT DAILY JUDY Furosemide (Furosemide 20 Mg/2 Ml Vial) 20 mg IV BID JUDY Naloxone HCl (Naloxone 0.4 Mg/Ml Vial) 0.2 mg IV Q2MIN PRN PRN Reason: Opiate Reversal Sertraline HCl (Sertraline 50 Mg Tablet) 100 mg PO DAILY JUDY Tamsulosin HCl (Tamsulosin 0.4 Mg Capsule) 0.4 mg PO DAILY JUDY Discontinued Medications Furosemide (Furosemide 40 Mg/4 Ml Vial) 40 mg IV NOW ONE Stop: 07/06/22 01:19 Last Admin: 07/06/22 01:29 Dose: 40 mg Documented By: KEITH Reevaluation(s) Reevaluation #1: Reviewed results with patient and family. Agree for admit. Time: 01:46 Consultations Consultation #1: Spoke with hospitalist, Fior Monge, agrees for admit. Time: 01:46 Vital Signs Vital signs: Vital Signs - 8 hr 07/06/22 00:48 07/06/22 02:35 Pulse Rate 65 64 Respiratory Rate 18 16 Blood Pressure 165/77 H 148/75 H Pulse Oximetry 95 94 Oxygen Delivery Method Room Air MDM - SOB/Dyspnea Differential Diagnosis Differential diagnosis: Likely acute exacerbation of chronic obstructive airways disease, congestive heart failure and community acquired pneumonia Lab Data Result diagrams: 07/05/22 19:31 07/05/22 19:31 Labs: Lab Results 07/05/22 07/05/22 07/05/22 Range/Units 19:31 19:31 19:31 WBC 7.3 (4.5-11.0) X10^3/uL RBC 3.72 L (4.5-5.9) X10^6/uL Hgb 12.0 L (13.5-17.5) g/dL Hct 35.4 L (41-53) % MCV 95.0 (80-100) fL MCH 32.3 (26-34) PG MCHC 33.9 (30-36) % RDW 16.3 H (11.6-14.8) % Plt Count 160 (150-400) X10^3/uL Neut % (Auto) 63.9 (50-75) % Lymph % (Auto) 21.6 L (25-40) % [place] % (Auto) 9.0 (3-14) % Eos % (Auto) 4.9 H (2-4) % Baso % (Auto) 0.6 (0-2) % Neut # (Auto) 4700 (5783-0486) /uL Lymph # (Auto) 1600 (9525-4939) /uL [place] # (Auto) 700 (0-900) /uL Eos # (Auto) 400 (0-450) /uL Baso # (Auto) 0 (0-100) /uL Sodium 140 (137-145) mmol/L Potassium 3.9 (3.4-5.1) mmol/L Chloride 105 (98-107) mmol/L Carbon Dioxide 24 (22-32) mmol/L BUN 24 H (9-20) mg/dL Creatinine 1.16 (0.66-1.25) mg/dL Estimated GFR > 60 (>60) mL/min BUN/Creatinine Ratio 20.7 (6-22) Glucose 163 H (80-110) mg/dL Lactate 1.1 (0.7-2.1) mmol/L Calcium 10.2 (8.4-10.2) mg/dL Total Bilirubin 0.8 (0.2-1.3) mg/dL AST 18 (17-59) IU/L ALT 16 (<50) IU/L Alkaline Phosphatase 111 (38-126) U/L Troponin I (0.01-0.034) ng/mL NT-Pro-B Natriuret Pep 2960 H (<450) pg/mL Total Protein 7.0 (6.3-8.2) g/dL Albumin 3.9 (3.5-5.0) g/dL Globulin 3.1 (1.7-4.1) g/dL Albumin/Globulin Ratio 1.3 (1.0-2.8) Procalcitonin (<0.5) ng/mL Chlamy pneumoniae PCR (Not Detect) Adenovirus (PCR) (Not Detect) B. pertussis DNA (PCR) (Not Detecte) B.parapertussis DNA PCR (Not Detecte) Coronavirus OC43 (PCR) (Not Detect) Coronavirus HKU1 (PCR) (Not Detect) Coronavirus 229E (PCR) (Not Detect) SARS-CoV-2 (PCR) (Not Detecte) Coronavirus NL63 (PCR) (Not Detect) Human Metapneumovir PCR (Not Detect) Influenza Type A (PCR) (Not Detect) Influenza Type B (PCR) (Not Detect) M. pneumoniae (PCR) (Not Detect) Parainfluenza 1 (PCR) (Not Detect) Parainfluenza 2 (PCR) (Not Detect) Parainfluenza 3 (PCR) (Not Detect) Parainfluenza 4 (PCR) (Not Detect) RSV (PCR) (Not Detect) Entero/Rhino (PCR) (Not Detect) 07/05/22 07/05/22 07/06/22 Range/Units 19:31 19:31 01:30 WBC (4.5-11.0) X10^3/uL RBC (4.5-5.9) X10^6/uL Hgb (13.5-17.5) g/dL Hct (41-53) % MCV (80-100) fL MCH (26-34) PG MCHC (30-36) % RDW (11.6-14.8) % Plt Count (150-400) X10^3/uL Neut % (Auto) (50-75) % Lymph % (Auto) (25-40) % [place] % (Auto) (3-14) % Eos % (Auto) (2-4) % Baso % (Auto) (0-2) % Neut # (Auto) (9486-1477) /uL Lymph # (Auto) (3670-6537) /uL [place] # (Auto) (0-900) /uL Eos # (Auto) (0-450) /uL Baso # (Auto) (0-100) /uL Sodium (137-145) mmol/L Potassium (3.4-5.1) mmol/L Chloride (98-107) mmol/L Carbon Dioxide (22-32) mmol/L BUN (9-20) mg/dL Creatinine (0.66-1.25) mg/dL Estimated GFR (>60) mL/min BUN/Creatinine Ratio (6-22) Glucose (80-110) mg/dL Lactate (0.7-2.1) mmol/L Calcium (8.4-10.2) mg/dL Total Bilirubin (0.2-1.3) mg/dL AST (17-59) IU/L ALT (<50) IU/L Alkaline Phosphatase (38-126) U/L Troponin I 0.031 (0.01-0.034) ng/mL NT-Pro-B Natriuret Pep (<450) pg/mL Total Protein (6.3-8.2) g/dL Albumin (3.5-5.0) g/dL Globulin (1.7-4.1) g/dL Albumin/Globulin Ratio (1.0-2.8) Procalcitonin 0.06 (<0.5) ng/mL Chlamy pneumoniae PCR Not detected (Not Detect) Adenovirus (PCR) Not detected (Not Detect) B. pertussis DNA (PCR) Not detected (Not Detecte) B.parapertussis DNA PCR Not detected (Not Detecte) Coronavirus OC43 (PCR) Not detected (Not Detect) Coronavirus HKU1 (PCR) Not detected (Not Detect) Coronavirus 229E (PCR) Not detected (Not Detect) SARS-CoV-2 (PCR) Not detected (Not Detecte) Coronavirus NL63 (PCR) Not detected (Not Detect) Human Metapneumovir PCR Not detected (Not Detect) Influenza Type A (PCR) Not detected (Not Detect) Influenza Type B (PCR) Not detected (Not Detect) M. pneumoniae (PCR) Not detected (Not Detect) Parainfluenza 1 (PCR) Not detected (Not Detect) Parainfluenza 2 (PCR) Not detected (Not Detect) Parainfluenza 3 (PCR) Not detected (Not Detect) Parainfluenza 4 (PCR) Not detected (Not Detect) RSV (PCR) Detected H (Not Detect) Entero/Rhino (PCR) Not detected (Not Detect) Imaging Data Chest x-ray: Radiologist's Impression: [address] [address] XRay Report Signed Patient: Tk Jacobo MR#: [id number] : 1940 Acct:[id number] Age/Sex: 81 / M Date of Service: 07/05/22 Loc: ED Accession Number: [id number] ?? Procedure: XR chest 2V Ordering Provider: Tk Nur MD PROCEDURE:? XR CHEST 2V ? INDICATIONS:? shortness of breath ? TECHNIQUE:? 2 views of the chest were acquired.? ? COMPARISON:? [facility], CR, XR CHEST 1V, 04/01/2021, 10:00. ? FINDINGS:? ? Surgical changes and devices:? None.? ? Lungs and pleura:? Patchy airspace opacities are seen bilaterally throughout the mid to lower lung zones.? Slight blunting of the left costophrenic angle may be secondary to pleural thickening or a trace pleural effusion. ? Mediastinum:? Mediastinal contours are normal.? Heart size is enlarged and stable.? ? Bones and chest wall:? No suspicious bony abnormalities.? Soft tissues appear unremarkable.? ? IMPRESSION:? 1. Diffuse bilateral patchy airspace opacities are suspicious for pneumonia versus less likely pulmonary edema.? 2. Stable cardiomegaly. ? ? ? Approved by: Lamin Shaw M.D. on 07/05/2022 at 20:14? ECG Data Interpretation: Normal sinus rhythm rate 60 right bundle-branch block, left anterior fascicular block. No ST elevation or depression. MDM Narrative Medical decision making narrative: Appropriate for admission for echocardiogram and diuresis. Reviewed with patient and family and agree for admit. Reviewed with hospitalist agrees for admit. Clinically likely new onset CHF and not infectious source. Discharge Plan Departure Patient Disposition: Admitted as Observation Clinical Impression: CHF (congestive heart failure), RSV infection Admit Date/Time: 07/06/22 02:58 Admit Provider: Fior Monge
[2022-07-06] MEDS: FUROSEMIDE 40 MG/4 ML VIAL IV (01:29)
[2022-07-06 02:25] LABS: Procalcitonin 0.06 ng/mL (<0.5)
[2022-07-06 02:33] LABS: Adenovirus Not Detected (Not Detect); B. parapertussis Not Detected (Not Detecte); Bordetella pertussis Not Detected (Not Detecte); Chlamydophila pneumoniae Not Detected (Not Detect); Coronavirus 229E Not Detected (Not Detect); Coronavirus HKU1 Not Detected (Not Detect); Coronavirus NL 63 Not Detected (Not Detect); Coronavirus OC43 Not Detected (Not Detect); Human Metapneumovirus Not Detected (Not Detect); Human Rhinovirus/Enterovirus Not Detected (Not Detect); Influenza A Not Detected (Not Detect); Influenza B Not Detected (Not Detect); Mycoplasma pneumoniae Not Detected (Not Detect); Parainfluenza Virus 1 Not Detected (Not Detect); Parainfluenza Virus 2 Not Detected (Not Detect); Parainfluenza Virus 3 Not Detected (Not Detect); Parainfluenza Virus 4 Not Detected (Not Detect); Respiratory Syncytial Virus Detected (Not Detect); SARS- CoV-2 Not Detected (Not Detecte)
[2022-07-06 02:35] VITALS: BP 148/75; PULSE 64; RESP 16; O2SAT 94
[2022-07-06 03:00] VITALS: BP 150/63; PULSE 60; RESP 17; TEMP 36.5; O2SAT 96; BMI 34.7
--- NOTE | 2022-07-06 03:00 | PC.NURSE ---
Patient admitted to 219 for CHF exacerbation. Patient A&Ox4, able to answer all admission questions. VSS. Visibly SOB with exertion. Patient also has +3 pitting edema in bilateral lower extremities. Call light given.
--- NOTE | 2022-07-06 03:04 | DI.ECHO.S_ITS ---
Version: 1 Study ID: [id number] [place] [address] Name: KIERAN LUGO Study Date: 07/06/2022, 9: 05 AM : 1940 BP: 150 / 63 mmHg Gender: Male Height: 69 in Age: 81 Years Weight: 235 lb BSA: 2.21 mA? Ordering: SEVERO DOOLEY Referring: SEVERO DOOLEY Clinician: Hemal Robles Reason For Study: SOB History: Summary Statements Sinus bradycardia with heart rate 57-60 bpm. Normal LV size and wall thickness. There is basal inferolateral, mid-inferolateral, mid anterolateral and basal anterolateral hypokinesis. Worst movement is demonstrated by basal inferolateral segment. EF is 45-50%. Stage II diastolic dysfunction. Severe biatrial enlargement; otherwise normal chamber sizes. 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 There is moderate associated aortic regurgitation with pressure half time of 401 msec. Compared to prior study in 2017, LV function looks worse. MR is newly appreciated. The caveat is that the current study is much better than prior study from technical standpoint. Procedure: A two-dimensional transthoracic echocardiogram with color flow and Doppler was performed. The study quality was technically adequate. Comparison is made with the echocardiogram of 05/23/2017. Left Ventricle: The left ventricle is mildly dilated. There is normal left ventricular wall thickness. Left ventricular systolic function is mildly reduced. The ejection fraction is estimated to be 45-50%. There is posterolateral wall hypokinesis. There is anterolateral wall hypokinesis. Diastolic parameters suggest a pseudonormalization pattern, consistent with probable elevated filling pressures. Right Ventricle: The right ventricle is normal in size and function. Atria: Both atria are severely dilated. The interatrial septum grossly appears intact with no obvious evidence for an atrial septal defect. Mitral Valve: The mitral valve leaflets appear mildly thickened, but open well. There is severe mitral regurgitation. The mitral regurgitant jet is eccentrically directed. Aortic Valve: There is mild aortic valve sclerosis. There is moderate aortic regurgitation. Tricuspid Valve: The tricuspid valve is normal in structure and function. No tricuspid regurgitation. Pulmonary artery pressures cannot be estimated because of the lack of a measurable TR jet velocity. Pulmonic Valve: The pulmonic valve is normal in structure and function. There is a trace or physiologic amount of pulmonic regurgitation. Great Vessels: The aortic root is not well visualized. The ascending aorta could not be visualized. The IVC is dilated (diameter is greater than 2.1 cm) yet it collapses greater than 50% with a sniff. This suggests a right atrial pressure of 8 mm Hg. Pericardium/ Pleura: There is no pericardial effusion. There is no pleural effusion. 2D and M-Mode Measurements and Calculations LVIDd: 6.0 cm LVOT diam: 2.37 cm LVIDs: 4.6 cm IVSd: 1.12 cm LVPWd: 1.04 cm LV perales. diameter/BSA (cm/m^2): 2.7 LV sys. 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 RA area: 29.7 flooring machine operator? LA A2 area: 32.3 flooring machine operator? RA long axis: 6.3 cm LA length (vol): 7.5 cm RA vol: 118.5 ml LA vol: 129.9 ml RA : 53.6 ml/mA? LA vol index: 58.7 ml/mA? 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 EDGAR(V,D): 3.8 flooring machine operator? EDGAR indexed to BSA (cm^2/m^2): 1.88 sev ratio: 0.95 AI P1/2t: 404.7 msec AI dec slope: 258.0 cm/secA? MV E max viktor: 108.6 cm/sec MV dec time: 0.17 sec MV A max viktor: 80.0 cm/sec MV E/A: 1.36 Med Peak E' Viktor: 6.9 cm/sec Lat Peak E' Viktor: 4.0 cm/sec E/e' average: 21.6 Electronically signed by: Sonja Pathak M.D. 07/06/2022, 10: 47 AM
[2022-07-06 03:43] LABS: Appearance Urine UA CLEAR; Bilirubin Urine UA NEGATIVE (NEGATIVE); Glucose Urine UA NEGATIVE (Negative); Ketones Urine UA NEGATIVE (NEGATIVE); Leukocyte Esterase Urine UA NEGATIVE (NEGATIVE); Nitrite Urine UA NEGATIVE (Negative); Occult Blood Urine UA TRACE-LYSED (Negative); Protein Urine UA TRACE (Negative); Urobilinogen Urine UA 0.2 E.U./dL (0.2)
[2022-07-06 03:49] LABS: Troponin I 0.031 ng/mL (0.01-0.034)
[2022-07-06 03:51] LABS: Bacteria Urine None Seen; Color Urine UA Straw; Culture Indicated Urine Cult Not Indicated; RBC Urine 0-1/HPF (0-5/HPF); Squamous Epithelial Cell Urine None Seen (0-5/HPF); WBC Urine None Seen (0-5/HPF)
[2022-07-06 04:22] LABS: INR 1.1 (0.9-1.3); Prothrombin Time 12.6 SECONDS (10.1-12.7)
[2022-07-06 04:30] LABS: Cholesterol 130 mg/dL (140-199); HDL Cholesterol 49 mg/dL (40-60); LDL Cholesterol Calculated 60 mg/dL (<100); Magnesium 1.8 mg/dL (1.6-2.3); Triglycerides 106 mg/dL (35-150)
[2022-07-06 04:59] LABS: Thyroid Stimulating Hormone 3.23 uIU/mL (0.47-4.68)
--- NOTE | 2022-07-06 06:46 | P.HP_ITS ---
History of Present Illness History of Present Illness Date Patient Seen: 07/06/22 Time Patient Seen: 03:00 Chief complaint: SOB Narrative: Tk Jacobo is an 81-year-old male with a history of hypertension, mixed hyperlipidemia, depressive disorder, BPH, ELLE who presents to the emergency department complaining of increasing shortness of breath with exertion, lower extremity edema, over the past 2 days and inability to take deep breaths. Patient received 40 of Lasix in ED. Upon admit to the floor patient is on no oxygen, states shortness of breath has resolved, denies chest pain, denies fever, body aches, chills, cough, congestion, sore throat, ear I discomfort, recent illness, or exposure, is fully vaccinated for flu and COVID, denies abdominal pain, nausea, vomiting, diarrhea, constipation, urinary dysuria urgency, frequency, any skin wounds infections or injury, recent falls, recent illness injury or trauma. Patient easily converses gets up and uses the restroom with no respiratory distress or discomfort. Vital signs temp 98.3?, BP 148/75, HR 64, O2 saturation 94% on room air. HGB 12, HCT 35.4, glucose 163, procalcitonin is within normal limits lactate within normal limits, BNP is 2960 last BNP on record for May 2021 was 430. The rest of patient's labs are unremarkable. Patient's chest x- ray demonstrates bilateral patchy airspace opacities pneumonia versus pleural effusion, with stable cardiomegaly. EKG NSR at a rate of 60 right BBB, left anterior fascicular block without ST or T-wave changes. Respiratory panel positive for RSV. Patient admitted new onset heart failure, SOB, secondary to RSV. Patient History Medical History Acute low back pain Acute renal insufficiency Allergic rhinitis, cause unspecified (01/09/05) Depressive disorder, not elsewhere classified (07/26/03) Diabetes type 2, controlled Excessive daytime sleepiness Extrinsic asthma without status asthmaticus with acute exacerbation (01/22/03) Facet arthropathy, lumbar Glucose intolerance (03/27/04) Gout, unspecified Hyperparathyroidism, unspecified Hypertension Idiopathic peripheral autonomic neuropathy, unspecified (08/28/02) [employer] associated with adverse incidents (~02/06/21) Mixed hyperlipidemia Obesity (BMI 30-39.9) Obstructive sleep apnea, adult Osteopenia (03/21/11) Proteinuria (11/06/05) Renal mass, right Right hip pain 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 Vitamin D deficiency, unspecified Surgical History History of parathyroid surgery Family & Social History Social History: household members none Prior Living Arrangements House Safety & Behavioral: Feels Safe in Current Yes Environment Been Physically Hurt or No Threatened By a Person Tobacco & Substance use: Smoking Status Former smoker alcohol intake frequency a few times a week Substance Use Type does not use Meds Home Medications and Allergies Home Medications Medication Instructions Recorded Confirmed Type amlodipine 5 mg tablet (Norvasc) 10 mg PO QDAY ##0 04/11/12 07/06/22 History allopurinol 300 mg tablet 300 mg PO QDAY ##90 06/05/12 07/06/22 Rx glucosamine sulfate 500 mg tablet 1,500 mg PO DAILY 10/02/18 07/06/22 History (Glucosamine) indomethacin 50 mg capsule 50 mg PO QID 10/02/18 07/06/22 History Respironics [employer] CPAP #1 ea 11/26/18 07/06/22 History atorvastatin 10 mg tablet 10 mg PO DAILY 05/27/19 07/06/22 History sertraline 100 mg tablet 100 mg PO DAILY 03/21/20 07/06/22 History carvedilol 25 mg tablet 25 mg PO BID 05/11/21 07/06/22 History cholecalciferol (vitamin D3) 125 125 mcg PO DAILY 05/11/21 07/06/22 History mcg (5,000 unit) capsule cyanocobalamin (vitamin B-12) 1,000 mcg PO DAILY 05/11/21 07/06/22 History 1,000 mcg capsule loperamide 2 mg tablet (Imodium 2 mg PO Q6H PRN sleep apnea 05/11/21 07/06/22 History A-D) tamsulosin 0.4 mg capsule (Flomax) 0.4 mg PO DAILY 05/11/21 07/06/22 History vitamin B complex 1 tab PO DAILY 05/11/21 07/06/22 History Allergies Allergy/AdvReac Type Severity Reaction Status Date / Time RAKAN Inhibitors Allergy Unknown COUGH Verified 07/25/21 09:52 nadolol Allergy Unknown BRADYCARDIA Verified 07/25/21 09:52 Review of Systems Review of Systems Narrative: All 12 point systems reviewed with the patient and are negative except otherwise documented. Exam Vital Signs (past 8 hours): - 07/06/22 00:48 07/06/22 02:35 07/06/22 03:00 Temperature 97.7 F Pulse Rate 65 64 60 Respiratory Rate 18 16 17 Blood Pressure 165/77 H 148/75 H 150/63 H Pulse Oximetry 95 94 96 Oxygen Delivery Method Room Air Oxygen Flow Rate 0 07/06/22 03:00 Temperature Pulse Rate Respiratory Rate Blood Pressure Pulse Oximetry Oxygen Delivery Method Room Air Oxygen Flow Rate Oxygen Delivery Method Room Air Oxygen Flow Rate 0 Narrative Exam Narrative: General: Patient is a well-developed, well-nourished, appears younger than stated age, in no distress at this time. HEENT: Normocephalic, atraumatic, extraocular muscles intact, oral pharynx is clear and mucous membranes are moist. Neck is supple and symmetric, trachea is midline, no adenopathy, no thyroid enlargement, nontender, no masses palpated. Negative for JVD Chest: Normal AP diameter and contour without kyphoscoliosis, no nasal flaring, retractions, or tachypneic labored Lungs: Auscultation of all lung [place] occasional scattered expiratory wheezing throughout, without adventitious sounds, rhonchi, or rales. Cardio: S1 & S2 with regular rate and rhythm without murmur, rubs, or gallops, no carotid bruit, no cardiac pulsations present. Abdomen: Soft nontender, negative for organomegaly, or masses. Bowel sounds are present in all 4 quadrants without guarding or rebound, no CVA tenderness. Musculoskeletal: Muscle strength and tone are equal within normal limits, no deformity, crepitus, effusions, cyanosis, clubbing, positive bilateral equal pitting lower extremity edema. Full range of motion intact radial and pedal pulses are normal. Skin: Warm dry and intact without rashes, ulcerations or petechiae. Neuro: Alert and orientated x3, strength is +5/5 in all extremities, sensation to touch intact, no gross deficits noted of cranial nerves. Psych: Patient has a well-kept appearance, appropriate affect, mental status attitude thought context and judgment are appropriate for age. Objective Labs Result Diagrams: 07/05/22 19:31 07/05/22 19:31 Labs: Laboratory Results - last 24 hr 07/05/22 07/05/22 07/05/22 19:31 19:31 19:31 WBC 7.3 RBC 3.72 L Hgb 12.0 L Hct 35.4 L MCV 95.0 MCH 32.3 MCHC 33.9 RDW 16.3 H Plt Count 160 Neut % (Auto) 63.9 Lymph % (Auto) 21.6 L Reagan % (Auto) 9.0 Eos % (Auto) 4.9 H Baso % (Auto) 0.6 Neut # (Auto) 4700 Lymph # (Auto) 1600 Reagan # (Auto) 700 Eos # (Auto) 400 Baso # (Auto) 0 PT INR Sodium 140 Potassium 3.9 Chloride 105 Carbon Dioxide 24 BUN 24 H Creatinine 1.16 Estimated GFR > 60 BUN/Creatinine Ratio 20.7 Glucose 163 H Lactate 1.1 Calcium 10.2 Magnesium Total Bilirubin 0.8 AST 18 ALT 16 Alkaline Phosphatase 111 Troponin I NT-Pro-B Natriuret Pep 2960 H Total Protein 7.0 Albumin 3.9 Globulin 3.1 Albumin/Globulin Ratio 1.3 Triglycerides Cholesterol LDL Cholesterol, Calc HDL Cholesterol Procalcitonin TSH Urine Color Urine Appearance Urine pH Ur Specific [place] Urine Protein Urine Glucose (UA) Urine Ketones Urine Occult Blood Urine Nitrate Urine Bilirubin Urine Urobilinogen Ur Leukocyte Esterase Urine RBC Urine WBC Ur Squamous Epith Cells Urine Bacteria Ur Culture Indicated? Chlamy pneumoniae PCR Adenovirus (PCR) B. pertussis DNA (PCR) B.parapertussis DNA PCR Coronavirus OC43 (PCR) Coronavirus HKU1 (PCR) Coronavirus 229E (PCR) SARS-CoV-2 (PCR) Coronavirus NL63 (PCR) Human Metapneumovir PCR Influenza Type A (PCR) Influenza Type B (PCR) M. pneumoniae (PCR) Parainfluenza 1 (PCR) Parainfluenza 2 (PCR) Parainfluenza 3 (PCR) Parainfluenza 4 (PCR) RSV (PCR) Entero/Rhino (PCR) 07/05/22 07/05/22 07/06/22 19:31 19:31 01:30 WBC RBC Hgb Hct MCV MCH MCHC RDW Plt Count Neut % (Auto) Lymph % (Auto) Reagan % (Auto) Eos % (Auto) Baso % (Auto) Neut # (Auto) Lymph # (Auto) Reagan # (Auto) Eos # (Auto) Baso # (Auto) PT INR Sodium Potassium Chloride Carbon Dioxide BUN Creatinine Estimated GFR BUN/Creatinine Ratio Glucose Lactate Calcium Magnesium Total Bilirubin AST ALT Alkaline Phosphatase Troponin I 0.031 NT-Pro-B Natriuret Pep Total Protein Albumin Globulin Albumin/Globulin Ratio Triglycerides Cholesterol LDL Cholesterol, Calc HDL Cholesterol Procalcitonin 0.06 TSH Urine Color Urine Appearance Urine pH Ur Specific [place] Urine Protein Urine Glucose (UA) Urine Ketones Urine Occult Blood Urine Nitrate Urine Bilirubin Urine Urobilinogen Ur Leukocyte Esterase Urine RBC Urine WBC Ur Squamous Epith Cells Urine Bacteria Ur Culture Indicated? Chlamy pneumoniae PCR Not detected Adenovirus (PCR) Not detected B. pertussis DNA (PCR) Not detected B.parapertussis DNA PCR Not detected Coronavirus OC43 (PCR) Not detected Coronavirus HKU1 (PCR) Not detected Coronavirus 229E (PCR) Not detected SARS-CoV-2 (PCR) Not detected Coronavirus NL63 (PCR) Not detected Human Metapneumovir PCR Not detected Influenza Type A (PCR) Not detected Influenza Type B (PCR) Not detected M. pneumoniae (PCR) Not detected Parainfluenza 1 (PCR) Not detected Parainfluenza 2 (PCR) Not detected Parainfluenza 3 (PCR) Not detected Parainfluenza 4 (PCR) Not detected RSV (PCR) Detected H Entero/Rhino (PCR) Not detected 07/06/22 07/06/22 07/06/22 03:30 03:56 03:56 WBC RBC Hgb Hct MCV MCH MCHC RDW Plt Count Neut % (Auto) Lymph % (Auto) Reagan % (Auto) Eos % (Auto) Baso % (Auto) Neut # (Auto) Lymph # (Auto) Reagan # (Auto) Eos # (Auto) Baso # (Auto) PT 12.6 INR 1.1 Sodium Potassium Chloride Carbon Dioxide BUN Creatinine Estimated GFR BUN/Creatinine Ratio Glucose Lactate Calcium Magnesium 1.8 Total Bilirubin AST ALT Alkaline Phosphatase Troponin I NT-Pro-B Natriuret Pep Total Protein Albumin Globulin Albumin/Globulin Ratio Triglycerides 106 Cholesterol 130 L LDL Cholesterol, Calc 60 HDL Cholesterol 49 Procalcitonin TSH Urine Color Straw Urine Appearance Clear Urine pH 6.0 Ur Specific [place] 1.010 Urine Protein Trace H Urine Glucose (UA) Negative Urine Ketones Negative Urine Occult Blood Trace-lysed Urine Nitrate Negative Urine Bilirubin Negative Urine Urobilinogen 0.2 Ur Leukocyte Esterase Negative Urine RBC 0-1/hpf Urine WBC None seen Ur Squamous Epith Cells None seen Urine Bacteria None seen Ur Culture Indicated? Cult not indicated Chlamy pneumoniae PCR Adenovirus (PCR) B. pertussis DNA (PCR) B.parapertussis DNA PCR Coronavirus OC43 (PCR) Coronavirus HKU1 (PCR) Coronavirus 229E (PCR) SARS-CoV-2 (PCR) Coronavirus NL63 (PCR) Human Metapneumovir PCR Influenza Type A (PCR) Influenza Type B (PCR) M. pneumoniae (PCR) Parainfluenza 1 (PCR) Parainfluenza 2 (PCR) Parainfluenza 3 (PCR) Parainfluenza 4 (PCR) RSV (PCR) Entero/Rhino (PCR) 07/06/22 03:56 WBC RBC Hgb Hct MCV MCH MCHC RDW Plt Count Neut % (Auto) Lymph % (Auto) Reagan % (Auto) Eos % (Auto) Baso % (Auto) Neut # (Auto) Lymph # (Auto) Reagan # (Auto) Eos # (Auto) Baso # (Auto) PT INR Sodium Potassium Chloride Carbon Dioxide BUN Creatinine Estimated GFR BUN/Creatinine Ratio Glucose Lactate Calcium Magnesium Total Bilirubin AST ALT Alkaline Phosphatase Troponin I NT-Pro-B Natriuret Pep Total Protein Albumin Globulin Albumin/Globulin Ratio Triglycerides Cholesterol LDL Cholesterol, Calc HDL Cholesterol Procalcitonin TSH 3.23 Urine Color Urine Appearance Urine pH Ur Specific [place] Urine Protein Urine Glucose (UA) Urine Ketones Urine Occult Blood Urine Nitrate Urine Bilirubin Urine Urobilinogen Ur Leukocyte Esterase Urine RBC Urine WBC Ur Squamous Epith Cells Urine Bacteria Ur Culture Indicated? Chlamy pneumoniae PCR Adenovirus (PCR) B. pertussis DNA (PCR) B.parapertussis DNA PCR Coronavirus OC43 (PCR) Coronavirus HKU1 (PCR) Coronavirus 229E (PCR) SARS-CoV-2 (PCR) Coronavirus NL63 (PCR) Human Metapneumovir PCR Influenza Type A (PCR) Influenza Type B (PCR) M. pneumoniae (PCR) Parainfluenza 1 (PCR) Parainfluenza 2 (PCR) Parainfluenza 3 (PCR) Parainfluenza 4 (PCR) RSV (PCR) Entero/Rhino (PCR) Assessment & Plan Assessment & Plan narrative: Tk Jacobo is an 81-year-old male with a history of hypertension, mixed hyperlipidemia, depressive disorder, BPH, ELLE who presents to the emergency department complaining of increasing shortness of breath with exertion, lower extremity edema, over the past 2 days and inability to take deep breaths. Patient received 40 of Lasix in ED. Patient admitted for SOB, new onset heart failure, secondary to RSV. 1. Heart Failure new onset, acute, with SOB, secondary to RSV infection, acute, present on admission - temp 98.3?, BP 148/75, HR 64, O2 saturation 94% on room air. procalcitonin & lactate WNL, Respiratory panel positive for RSV. -BNP is 2960 last BNP on record for May 2021 was 430. -chest x-ray demonstrates bilateral patchy airspace opacities pneumonia versus pleural effusion, with stable cardiomegaly. -ordered UA, Mag, PT/INR, repeat BNP, lipids, A1c, TSH, troponin -patient placed on fluid restriction 2000 cc, low-sodium diet, daily weights, strict I&O -respiratory consult as needed for shortness of breath -Lasix 20 mg IV b.i.d. -echo ordered for evaluation of heart failure-patient may need to follow-up and complete as an outpatient. 2. Hypertension, essential, chronic, present on admission -continue amlodipine, losartan, carvedilol, HCTZ -EKG NSR at a rate of 60 right BBB, left anterior fascicular block without ST or T-wave changes. 3. Hyperlipidemia, mixed, chronic, present on admission -lipid panel ordered -continue Lipitor 4. Depressive disorder, chronic, present on admission -continue sertraline 5. BPH, without obstruction, chronic, present on admission -continue Flomax 6. Obstructive sleep apnea, chronic, present on admission -stable 7. Obesity, acute on chronic, present on admission -dietary consult ordered regarding nutritional education and information for dietary, lifestyle, exercise, and weight changes. -the patient is at much higher risk for medical and surgical complications due to obesity as it relates to chronic illnesses:, and acute RSV infection and new onset Heart failure. The patient's obesity increases the difficulty and complexity of medical and/or surgical interventions, management and increases the chances of poor outcome such as morbidity and mortality as well as impaired oxygenation. Code status:DNR Surrogate decision maker: Chemo Borden COVID PCR:Negative COVID vaccination: Fully vaccinated DVT/VTE prophylaxis: Lovenox and SCDs Disposition: Patient requires observational for echocardiogram, expected length of stay less than 2 midnights. I have utilized all available immediate resources to obtain, update, or review the patient's current medications. I confirmed that the patient's advanced care plan is present, Code status is documented and/or surrogate decision maker is listed in the patient's medical record. I have personally reviewed patient's chart notes from PCP, specialists, diagnostic imaging, and laboratory, Time Spent With Patient Critical Care time: I spent a total of [] minutes of critical care time on this patient's care today; this time is exclusive of procedural time.
[2022-07-06 08:33] VITALS: BP 139/54; PULSE 60; RESP 18; TEMP 36.6; O2SAT 93
--- NOTE | 2022-07-06 09:01 | P.DS_ITS ---
History of Present Illness History of Present Illness Chief complaint: SOB Narrative: Tk Jacboo is an 81-year-old male with a history of hypertension, mixed hyperlipidemia, depressive disorder, BPH, ELLE who presents to the emergency department complaining of increasing shortness of breath with exertion, lower extremity edema, over the past 2 days and inability to take deep breaths.? Patient received 40 of Lasix in ED. Upon admit to the floor patient is on no oxygen, states shortness of breath has resolved, denies chest pain, denies fever, body aches, chills, cough, congestion, sore throat, ear I discomfort, recent illness, or exposure, is fully vaccinated for flu and COVID, denies abdominal pain, nausea, vomiting, diarrhea, constipation, urinary dysuria urgency, frequency, any skin wounds infections or injury, recent falls, recent illness injury or trauma. Patient easily converses gets up and uses the restroom with no respiratory distress or discomfort.? Vital signs temp 98.3?, BP 148/75, HR 64, O2 saturation 94% on room air.? HGB 12, HCT 35.4, glucose 163, procalcitonin is within normal limits lactate within normal limits, BNP is 2960 last BNP on record for May 2021 was 430.? The rest of patient's labs are unremarkable.? Patient's chest x- ray demonstrates bilateral patchy airspace opacities pneumonia versus pleural effusion, with stable cardiomegaly.? EKG NSR at a rate of 60 right BBB, left anterior fascicular block without ST or T-wave changes.? Respiratory panel positive for RSV.? Patient admitted new onset heart failure, SOB, secondary to RSV. Discharge Providers Provider Date of admission: 07/06/22 02:58 Discharge Date: 07/06/22 Consults: 07/06/22 03:05 Consult to Respiratory Therapy Evaluate & Treat Comment: as needed for SOB Physician Instructions: Evaluate and treat 07/06/22 03:08 Consult to Dietitian, Adult Routine Comment: Reason For Exam: BMI 34.7 Discharge provider: Layo Guido DO Summary Hospital Course Discharge Diagnosis: 1. Systolic and diastolic heart Failure exacerbation, new onset, acute, with SOB, secondary to RSV infection, acute, present on admission - temp 98.3?, BP 148/75, HR 64, O2 saturation 94% on room air.? procalcitonin & lactate WNL,? Respiratory panel positive for RSV. -BNP is 2960 last BNP on record for May 2021 was 430.? -chest x-ray demonstrates bilateral patchy airspace opacities pneumonia versus pleural effusion, with stable cardiomegaly. -patient placed on fluid restriction 2000 cc, low-sodium diet, daily weights, strict I&O -respiratory consult as needed for shortness of breath -Lasix 20 mg IV b.i.d. given with improved rales and SOB -echo showed as below: Normal LV size and wall thickness. There is basal inferolateral, mid-inferolateral, mid anterolateral and basal anterolateral hypokinesis. Worst movement is demonstrated by basal inferolateral segment. EF is 45-50%. Stage II diastolic dysfunction. Severe biatrial enlargement; otherwise normal chamber sizes. 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 There is moderate associated aortic regurgitation with pressure half time of 401 msec. Compared to prior study in 2017, LV function looks worse. MR is newly appreciated. The caveat is that the current study is much better than prior study from technical standpoint. -cardiology recommended continuing coreg, stopping amlodipine and switching to losartan, starting po lasix qd and following up outpatient for cardiac cath 2. Hypertension, essential, chronic, present on admission -continue losartan, carvedilol, HCTZ, stopped amlodipine per cards recs -EKG NSR at a rate of 60 right BBB, left anterior fascicular block without ST or T-wave changes. 3. Hyperlipidemia, mixed, chronic, present on admission -lipid panel ordered -Lipitor increased from 10 to 40 nightly 4. Depressive disorder, chronic, present on admission -continue sertraline 5. BPH, without obstruction, chronic, present on admission -continue Flomax 6. Obstructive sleep apnea, chronic, present on admission -stable -reports compliance with CPAP 7. Obesity, acute on chronic, present on admission -dietary consult ordered regarding nutritional education and information for dietary, lifestyle, exercise, and weight changes. -the patient is at much higher risk for medical and surgical complications due to obesity as it relates to chronic illnesses:, and acute RSV infection and new onset Heart failure.? The patient's obesity increases the difficulty and complexity of medical and/or surgical interventions, management and increases th e chances of poor outcome such as morbidity and mortality as well as impaired oxygenation. 8. History of severe hyperkalemia -patient reports previously being on 100mg losartan and 25mg spironolactone and developed K of 8.7. These medications were stopped after this. Given these were high doses, discussion was had about safety of losartan at low dose of 25mg and that this should be safe and not cause hyperkalemia to the degree that aldactone causes it. Recommended outpatient repeat bloodwork with PCP to ensure potassium not rising on the low dose losartan. Has history of cough with RAKAN-i Hospital Course: Patient admitted for RSV associated SOB and found to be in new onset CHF exacerbation. 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 Cardioloogy curbsided who recommended adjustment of medications to include stopping amlodipine, starting losartan and daily lasix 40mg and following up with outpatient cardiology for a heart cath. Patient's breathing improved after IV lasix and lungs had no rales. He was on room air and would only get SOB with exertion. Patient felt he was ok to discharge home to rest and see his PCP for follow-up. Time Spent with Patient Time spent: Greater than 30 minutes Exam Vital Signs (past 8 hours): - 07/06/22 02:35 07/06/22 03:00 07/06/22 03:00 Temperature 97.7 F Pulse Rate 64 60 Respiratory Rate 16 17 Blood Pressure 148/75 H 150/63 H Pulse Oximetry 94 96 Oxygen Delivery Method Room Air Room Air Oxygen Flow Rate 0 07/06/22 08:33 Temperature 97.9 F Pulse Rate 60 Respiratory Rate 18 Blood Pressure 139/54 L Pulse Oximetry 93 Oxygen Delivery Method Oxygen Flow Rate 0 Oxygen Delivery Method Room Air Oxygen Flow Rate 0 Narrative Exam Narrative: General: Patient is a well-developed, well-nourished, appears younger than stated age, in no distress at this time. HEENT: Normocephalic, atraumatic, extraocular muscles intact, oral pharynx is clear and mucous membranes are moist. Neck is supple and symmetric, trachea is midline, no adenopathy, no thyroid enlargement, nontender, no masses palpated. Negative for JVD Chest: Normal AP diameter and contour without kyphoscoliosis, no nasal flaring, retractions, or tachypneic labored Lungs: Auscultation of all lung [place] were clear Cardio: S1 & S2 with regular rate and rhythm without murmur, rubs, or gallops, no carotid bruit, no cardiac pulsations present. 1+ edema of bilateral LE's Abdomen: Soft nontender, negative for organomegaly, or masses. Bowel sounds are present in all 4 quadrants without guarding or rebound, no CVA tenderness. Musculoskeletal: Muscle strength and tone are equal within normal limits, no deformity, crepitus, effusions, cyanosis, clubbing, positive bilateral equal pitting lower extremity edema. Full range of motion intact radial and pedal pulses are normal. Skin: Warm dry and intact without rashes, ulcerations or petechiae. Neuro: Alert and orientated x3, strength is +5/5 in all extremities, sensation to touch intact, no gross deficits noted of cranial nerves. Psych: Patient has a well-kept appearance, appropriate affect, mental status attitude thought context and judgment are appropriate for age. Objective Labs Result Diagrams: 07/06/22 10:09 07/06/22 10:09 Labs: Laboratory Results - last 24 hr 07/05/22 07/05/22 07/05/22 19:31 19:31 19:31 WBC 7.3 RBC 3.72 L Hgb 12.0 L Hct 35.4 L MCV 95.0 MCH 32.3 MCHC 33.9 RDW 16.3 H Plt Count 160 Neut % (Auto) 63.9 Lymph % (Auto) 21.6 L [place] % (Auto) 9.0 Eos % (Auto) 4.9 H Baso % (Auto) 0.6 Neut # (Auto) 4700 Lymph # (Auto) 1600 [place] # (Auto) 700 Eos # (Auto) 400 Baso # (Auto) 0 PT INR Sodium 140 Potassium 3.9 Chloride 105 Carbon Dioxide 24 BUN 24 H Creatinine 1.16 Estimated GFR > 60 BUN/Creatinine Ratio 20.7 Glucose 163 H Lactate 1.1 Calcium 10.2 Magnesium Total Bilirubin 0.8 AST 18 ALT 16 Alkaline Phosphatase 111 Troponin I NT-Pro-B Natriuret Pep 2960 H Total Protein 7.0 Albumin 3.9 Globulin 3.1 Albumin/Globulin Ratio 1.3 Triglycerides Cholesterol LDL Cholesterol, Calc HDL Cholesterol Procalcitonin TSH Urine Color Urine Appearance Urine pH Ur Specific Lewis Urine Protein Urine Glucose (UA) Urine Ketones Urine Occult Blood Urine Nitrate Urine Bilirubin Urine Urobilinogen Ur Leukocyte Esterase Urine RBC Urine WBC Ur Squamous Epith Cells Urine Bacteria Ur Culture Indicated? Chlamy pneumoniae PCR Adenovirus (PCR) B. pertussis DNA (PCR) B.parapertussis DNA PCR Coronavirus OC43 (PCR) Coronavirus HKU1 (PCR) Coronavirus 229E (PCR) SARS-CoV-2 (PCR) Coronavirus NL63 (PCR) Human Metapneumovir PCR Influenza Type A (PCR) Influenza Type B (PCR) M. pneumoniae (PCR) Parainfluenza 1 (PCR) Parainfluenza 2 (PCR) Parainfluenza 3 (PCR) Parainfluenza 4 (PCR) RSV (PCR) Entero/Rhino (PCR) 07/05/22 07/05/22 07/06/22 19:31 19:31 01:30 WBC RBC Hgb Hct MCV MCH MCHC RDW Plt Count Neut % (Auto) Lymph % (Auto) [place] % (Auto) Eos % (Auto) Baso % (Auto) Neut # (Auto) Lymph # (Auto) [place] # (Auto) Eos # (Auto) Baso # (Auto) PT INR Sodium Potassium Chloride Carbon Dioxide BUN Creatinine Estimated GFR BUN/Creatinine Ratio Glucose Lactate Calcium Magnesium Total Bilirubin AST ALT Alkaline Phosphatase Troponin I 0.031 NT-Pro-B Natriuret Pep Total Protein Albumin Globulin Albumin/Globulin Ratio Triglycerides Cholesterol LDL Cholesterol, Calc HDL Cholesterol Procalcitonin 0.06 TSH Urine Color Urine Appearance Urine pH Ur Specific Lewis Urine Protein Urine Glucose (UA) Urine Ketones Urine Occult Blood Urine Nitrate Urine Bilirubin Urine Urobilinogen Ur Leukocyte Esterase Urine RBC Urine WBC Ur Squamous Epith Cells Urine Bacteria Ur Culture Indicated? Chlamy pneumoniae PCR Not detected Adenovirus (PCR) Not detected B. pertussis DNA (PCR) Not detected B.parapertussis DNA PCR Not detected Coronavirus OC43 (PCR) Not detected Coronavirus HKU1 (PCR) Not detected Coronavirus 229E (PCR) Not detected SARS-CoV-2 (PCR) Not detected Coronavirus NL63 (PCR) Not detected Human Metapneumovir PCR Not detected Influenza Type A (PCR) Not detected Influenza Type B (PCR) Not detected M. pneumoniae (PCR) Not detected Parainfluenza 1 (PCR) Not detected Parainfluenza 2 (PCR) Not detected Parainfluenza 3 (PCR) Not detected Parainfluenza 4 (PCR) Not detected RSV (PCR) Detected H Entero/Rhino (PCR) Not detected 07/06/22 07/06/22 07/06/22 03:30 03:56 03:56 WBC RBC Hgb Hct MCV MCH MCHC RDW Plt Count Neut % (Auto) Lymph % (Auto) [place] % (Auto) Eos % (Auto) Baso % (Auto) Neut # (Auto) Lymph # (Auto) [place] # (Auto) Eos # (Auto) Baso # (Auto) PT 12.6 INR 1.1 Sodium Potassium Chloride Carbon Dioxide BUN Creatinine Estimated GFR BUN/Creatinine Ratio Glucose Lactate Calcium Magnesium 1.8 Total Bilirubin AST ALT Alkaline Phosphatase Troponin I NT-Pro-B Natriuret Pep Total Protein Albumin Globulin Albumin/Globulin Ratio Triglycerides 106 Cholesterol 130 L LDL Cholesterol, Calc 60 HDL Cholesterol 49 Procalcitonin TSH Urine Color Straw Urine Appearance Clear Urine pH 6.0 Ur Specific Lewis 1.010 Urine Protein Trace H Urine Glucose (UA) Negative Urine Ketones Negative Urine Occult Blood Trace-lysed Urine Nitrate Negative Urine Bilirubin Negative Urine Urobilinogen 0.2 Ur Leukocyte Esterase Negative Urine RBC 0-1/hpf Urine WBC None seen Ur Squamous Epith Cells None seen Urine Bacteria None seen Ur Culture Indicated? Cult not indicated Chlamy pneumoniae PCR Adenovirus (PCR) B. pertussis DNA (PCR) B.parapertussis DNA PCR Coronavirus OC43 (PCR) Coronavirus HKU1 (PCR) Coronavirus 229E (PCR) SARS-CoV-2 (PCR) Coronavirus NL63 (PCR) Human Metapneumovir PCR Influenza Type A (PCR) Influenza Type B (PCR) M. pneumoniae (PCR) Parainfluenza 1 (PCR) Parainfluenza 2 (PCR) Parainfluenza 3 (PCR) Parainfluenza 4 (PCR) RSV (PCR) Entero/Rhino (PCR) 07/06/22 03:56 WBC RBC Hgb Hct MCV MCH MCHC RDW Plt Count Neut % (Auto) Lymph % (Auto) [place] % (Auto) Eos % (Auto) Baso % (Auto) Neut # (Auto) Lymph # (Auto) [place] # (Auto) Eos # (Auto) Baso # (Auto) PT INR Sodium Potassium Chloride Carbon Dioxide BUN Creatinine Estimated GFR BUN/Creatinine Ratio Glucose Lactate Calcium Magnesium Total Bilirubin AST ALT Alkaline Phosphatase Troponin I NT-Pro-B Natriuret Pep Total Protein Albumin Globulin Albumin/Globulin Ratio Triglycerides Cholesterol LDL Cholesterol, Calc HDL Cholesterol Procalcitonin TSH 3.23 Urine Color Urine Appearance Urine pH Ur Specific Lewis Urine Protein Urine Glucose (UA) Urine Ketones Urine Occult Blood Urine Nitrate Urine Bilirubin Urine Urobilinogen Ur Leukocyte Esterase Urine RBC Urine WBC Ur Squamous Epith Cells Urine Bacteria Ur Culture Indicated? Chlamy pneumoniae PCR Adenovirus (PCR) B. pertussis DNA (PCR) B.parapertussis DNA PCR Coronavirus OC43 (PCR) Coronavirus HKU1 (PCR) Coronavirus 229E (PCR) SARS-CoV-2 (PCR) Coronavirus NL63 (PCR) Human Metapneumovir PCR Influenza Type A (PCR) Influenza Type B (PCR) M. pneumoniae (PCR) Parainfluenza 1 (PCR) Parainfluenza 2 (PCR) Parainfluenza 3 (PCR) Parainfluenza 4 (PCR) RSV (PCR) Entero/Rhino (PCR) [facility] Medical History Acute low back pain Acute renal insufficiency Allergic rhinitis, cause unspecified (01/09/05) Depressive disorder, not elsewhere classified (07/26/03) Diabetes type 2, controlled Excessive daytime sleepiness Extrinsic asthma without status asthmaticus with acute exacerbation (01/22/03) Facet arthropathy, lumbar Glucose intolerance (03/27/04) Gout, unspecified Hyperparathyroidism, unspecified Hypertension Idiopathic peripheral autonomic neuropathy, unspecified (08/28/02) [employer]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 I've provided your echo results to bring to your PCP for a cardiology referral. You will likely need a heart cath at some point to look at the vessels of your heart. I've changed your meds around some so stop your amlodipine and start losartan 25mg daily, increased your lipitor to 40mg nightly and start lasix 40mg daily. Discharge orders & Medications Prescriptions: New furosemide 40 mg Tablet 40 mg PO DAILY Qty: 90 0RF atorvastatin [Lipitor] 40 mg tablet 40 mg PO BEDTIME Qty: 90 0RF losartan 25 mg tablet 25 mg PO DAILY 90 Days Qty: 90 0RF Continued allopurinol 300 MG tablet 300 mg PO QDAY Qty: 90 0RF indomethacin 50 mg Capsule 50 mg PO QID glucosamine sulfate [Glucosamine] 500 mg Tablet 1,500 mg PO DAILY sertraline 100 mg tablet 100 mg PO DAILY (DME) [employer] CPAP Qty: 1 Dose Instruction: As directed Label Comments: Pressure: 8-16 cmH2O DME: [facility] Rx Instructions: As directed carvedilol 25 mg tablet 25 mg PO BID Rx Instructions: must administer with a meal/food cholecalciferol (vitamin D3) 125 mcg (5,000 unit) capsule 125 mcg PO DAILY loperamide [Imodium A-D] 2 mg tablet 2 mg PO Q6H PRN (Reason: sleep apnea) tamsulosin [Flomax] 0.4 mg capsule 0.4 mg PO DAILY vitamin B complex Tablet 1 tab PO DAILY cyanocobalamin (vitamin B-12) 1,000 mcg capsule 1,000 mcg PO DAILY Discontinued amlodipine [Norvasc] 5 MG tablet 10 mg PO QDAY Qty: 0 atorvastatin 10 mg tablet 10 mg PO DAILY Visit Report/Discharge Packet Instructions: Heart Failure, Cardiac Catheterization, DI for Heart Failure, Atorvastatin, Furosemide, Losartan Discharge Data Attending Provider: Fior Monge
[2022-07-06 09:33] VITALS: BP 139/54; PULSE 61
[2022-07-06] MEDS: carvediloL 12.5 MG TABLET 25 MG PO (09:33)
[2022-07-06] MEDS: ATORVASTATIN 20 MG TABLET 10 MG PO (09:33)
[2022-07-06] MEDS: ENOXAPARIN 40 MG/0.4 ML SYRINGE SUBCUT (09:34)
[2022-07-06] MEDS: TAMSULOSIN 0.4 MG CAPSULE PO (09:35)
[2022-07-06] MEDS: AMLODIPINE 5 MG TABLET 10 MG PO (09:35)
[2022-07-06] MEDS: SERTRALINE 50 MG TABLET 100 MG PO (09:35)
[2022-07-06] MEDS: FUROSEMIDE 20 MG/2 ML VIAL IV (09:35)
[2022-07-06 11:03] LABS: BUN Creatinine Ratio 21.1 (6-22); Blood Urea Nitrogen 24 mg/dL (9-20); Calcium 10.3 mg/dL (8.4-10.2); Carbon Dioxide 24 mmol/L (22-32); Chloride 106 mmol/L (98-107); Estimated Glomerular Filt Rate > 60 mL/min (>60); Glucose 194 mg/dL (80-110); Sodium 140 mmol/L (137-145)
[2022-07-06 11:05] LABS: HEMOLYSIS 73 (0-50)
[2022-07-06 11:06] LABS: Potassium 4.6 mmol/L (3.4-5.1)
[2022-07-06 11:12] LABS: NT-proBNP (BNP-Adult 18+) 3490 pg/mL (<450)
[2022-07-06 11:15] LABS: Troponin I 0.037 ng/mL (0.01-0.034)
[2022-07-06] MEDS: LOSARTAN 25 MG TABLET PO (11:22)
[2022-07-06] MEDS: FUROSEMIDE 40 MG/4 ML VIAL 20 MG IV (11:23)
[2022-07-06 11:57] VITALS: BP 145/60; PULSE 63; RESP 18; TEMP 36.6; O2SAT 96
--- NOTE | 2022-07-06 14:05 | DIET.CONS ---
Addendum entered by Betty Ordoñez 07/06/22 16:40: RD agrees with student assessment Original Note: Dietary Consultation Note Admission Date: 07/06/2022 02:58 Assessment: Pt is an 81 yo M admitted for SOB and new onset CHF r/t RSV. Pt referred to RD for BMI 34.7. Pt on 2 g Na restriction and fluid restriction diet in hospital. H&P reports +3 pitting edema in bilateral lower extremities. Ht: 175.26 cm Wt: 106.5 kg BMI: 34.7 Last BM: () MNA: Venkatesh Score: 20 Diet: 07/06/22 Breakfast Fluid Restriction Diet Diet Modifications: Total fluid amount: 2,000 Amount allotted to patient trays: 100 Free water included in total: Yes Fluid in addition to trays: 8804-5115 amount: 850 2495-6699 amount: 850 Low Sodium Diet (2gm) Diet Modifications: Nutrition Percent Meal Consumed 100% 07/06/22 09:10 Labs: RBC 3.72 X10^6/uL (4.5-5.9) L 07/05/22 19:31 Hgb 12.0 g/dL (13.5-17.5) L 07/06/22 10:09 Hct 36.0 % (41-53) L 07/06/22 10:09 Creatinine 1.14 mg/dL (0.66-1.25) 07/06/22 10:09 Lactate 1.1 mmol/L (0.7-2.1) 07/05/22 19:31 NT-Pro-B Natriuret Pep 3490 pg/mL (<450) H 07/06/22 10:09 Nutrition Diagnosis: Excessive fluid intake r/t cardiac dysfunction (heart failure) aeb bilateral lower extremity edema and SOB. Interventions: 1. Continue 2 g Na restriction and fluid restriction diet regimen at hospital. 2. Provided pt with education on HF nutrition therapy including 2,000 mg/d Na restriction and fluid restriction based on d/c reccs (or total intake of 2L if no d/c reccs provided). Collaborated with pt on herbs, spices, citrus juice, and vinegars for replacement of added salt when cooking soups and grilling meats. Pt interested in restricting fluids and sodium as recommended. 3.. Recc outpt MNT for weight management and CHF. Monitoring/Evaluations: Consult RD sadan Electronically Signed by: Sydnie Wheatley 07/06/22 14:05 Clinical Dietitian [address] [address]
--- NOTE | 2022-07-06 14:40 | PC.NURSE ---
Pt received lying in bed A&OX4, pleasant without complaints. He reports shortness of breath is improved. Noted LS clear and diminished throughout, and dry cough intermittently. He attempts to expectorate a sputum which is clear and sent to lab. Pt is able to ambulate around the room independently without difficulty. edema to bilateral legs 2+ He reports some improvement with the swelling. He denies CP, N/V, dizziness, head ache or other complaints. Administered medication with scheduled lasix with adequate urine out put this shift. Echo completed and cardiology reviewed results with the hospitalist. He talks with patient and daughter at length about the results, medications, discharge plan, as well as follow up care. Both daughter and patient ask appropriate questions and verbalize understanding of new medication regimen and follow up plan. He dresses independently and is escorted via w/ch in private vehicle with his daughter for discharge home today at approximately 1440 this afternoon.
--- NOTE | 2022-07-06 14:57 | CM.DANOTE ---
DCP Assessment: Patient is a 81 yr old male who was admitted for RSV and dyspnea. CM called patient on the phone since he was in isolation for RSV. CM explained role and patient stated understanding. patient was alert and oriented at time of CM conversation. Patient currently lives in [place] in a single level home with his dog. He states he is completely independent with all ADLS and drives at his base line. Patient states he does not use DME at home. I: [employer] and Selfpay Plan: DC home when medically stable with help from his daughter and STACIASEGUNDO Huang. no identified DC planning needs at this time. Dafne Watler RNputty worker Discharge Planning/Care Management CM Discharge Assessment Start: 07/06/22 14:51 Freq: Status: Discharge Protocol: Document 07/06/22 14:55 HS (Rec: 07/06/22 14:57 HS [id number]) Discharge Planning Assessment Assigned Forging Die Sinker Dafne Walter RNputty worker DPOA/Assigned Designee Name Reina - Daughter Advance Directives? Yes Advance Directives on File Yes History Provided By Patient,Medical Record Has Patient been admitted in last 30 No days? Prior Living Arrangements House Household Members none Comment inderjit Huang will be staying with patient during his recovery Type of transporation used prior to Drives own vehicle admit Independent with ADL's Yes Is patient alert and oriented? Yes Caregiver for Another No Comment Doesnt use DME Barriers to Discharge No Discharge Plan Home Transportation Arrangement Inderjit Huang will drive patient home Referrals Initiated None needed Whiteboard Updated in Patient Room with Yes name and ext. # of Forging Die Sinker Review Status In Process Next Review Type Continued Stay Review
== END 2022-07-06 14:40 | disposition home or self-care (01) ==
LOC: ED 07-06 01:21 → AC 07-06 04:11
PROVIDERS: Admitting Provider Nurse Practitioner Family; Emergency Provider Emergency Medicine; Referring Provider Emergency Medicine; Visit Provider Nurse Practitioner Family
DX: I11.0 Hypertensive heart disease with heart failure (principal); I50.9 Heart failure, unspecified; R06.02 Shortness of breath; B97.4 Respiratory syncytial virus as the cause of diseases classified elsewhere; F32.A Depression, unspecified; G47.33 Obstructive sleep apnea (adult) (pediatric); N40.0 Benign prostatic hyperplasia without lower urinary tract symptoms; R60.0 Localized edema; E78.2 Mixed hyperlipidemia; E66.9 Obesity, unspecified; Z20.822 Contact with and (suspected) exposure to COVID-19
CPT/HCPCS: 36415; 71046; 80048; 80053; 80061; 81001; 83605; 83735; 83880; 84145; 84443; 84484; 85014; 85018; 85025; 85610; 87633; 93005; 93010; 93306; 96372; 96374; 96376; 99284; G0378; J1650; J1940